=== PATIENT | male | born 1940 | race Caucasian/White ===

== ENCOUNTER 2019-11-01 10:38 | Outpatient (CLI) | payer MEDICARE, SELFPAY ==
[2019-11-01 11:18] LABS: Hematocrit 50.1 % (42.0-52.0); Hemoglobin 16.2 g/dL (14.0-18.0)
[2019-11-01 11:29] LABS: Alanine Aminotransferase 31 U/L (4-50); Aspartate Amino Transferase 28 U/L (17-59)
[2019-11-05 11:24] LABS: Testosterone Free 61.2 pg/mL (6.0-73.0); Testosterone Total 565 ng/dL (250-1100)
[2019-11-06 22:21] LABS: Estradiol, Ultrasensitive 32 pg/mL (< OR = 29)
== END 2019-11-01 10:39 | disposition home or self-care (01) ==
PROVIDERS: Visit Provider Radiology Radiation Oncology
DX: N40.1 Benign prostatic hyperplasia with lower urinary tract symptoms (principal)
CPT/HCPCS: 36415; 82670; 84402; 84403; 84450; 84460; 85014; 85018

== ENCOUNTER 2020-04-24 10:11 | Emergency (ER) | payer MEDICARE, SELFPAY ==
--- NOTE | ~2020-04-24 | XR_ITS ---
EXAMINATION: XR femur LT min 2V INDICATION: Lump/wound to the lateral aspect of the mid femur TECHNIQUE: Two views of the left femur are obtained on four radiographs COMPARISON: None available FINDINGS: Bone alignment is normal. 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 No fracture is identified. Phleboliths are noted in the pelvis. Subtle soft tissue swelling is seen lateral to the m id femur without underlying osseous abnormality. IMPRESSION: 1. No acute osseous abnormality. Reviewed, dictated and finalized at location B.
--- NOTE | ~2020-04-24 | US_ITS ---
EXAMINATION: US soft tissue LE LT DATE: 04/24/2020 12:45 INDICATION: Left thigh mass and pain. TECHNIQUE: Multiple grayscale and Doppler ultrasound images of the left thigh were obtained. COMPARISON: Left femur radiographs 04/24/2020 FINDINGS: There is a 1.8 cm cystic mass with low level echoes in the musculature in distal lateral le ft thigh. IMPRESSION: 1. 1.8 cm cystic mass with low level echoes in the musculature in distal lateral left thigh, likely a hematoma from a grade 2 muscle strain. Reviewed, dictated and finalized at location A. IMPRESSION: 1. 1.8 cm cystic mass with low level echoes in the musculature in distal latera l left thigh, likely a hematoma from a grade 2 muscle strain.
--- NOTE | ~2020-04-24 | XR_ITS ---
EXAMINATION: XR knee LT 3V DATE: 04/24/2020 11:11 INDICATION: Lump/one to the lateral aspect of the femur TECHNIQUE: Three views of the left knee were obtained. COMPARISON: None. FINDINGS: Alignment is normal. No fracture or osteochondral lesion. There is mild tricompartmental os teoarthritis characterized by tiny marginal osteophytes. No joint effusion/synovitis. Soft tissues a re unremarkable. IMPRESSION: 1. No acute osseous abnormality. Reviewed, dictated and finalized at location B.
[2020-04-24 10:20] VITALS: BP 152/49; PULSE 91; RESP 18; TEMP 36.5; O2SAT 100
--- NOTE | 2020-04-24 10:45 | ED.LOWEXIN ---
HPI - Extremity Injury (Lower) General Chief Complaint: Extremity Injury, Lower Stated Complaint: leg wound Time Seen by Provider: 04/24/20 10:38 History of Present Illness HPI Narrative: Pain in his medial left thigh for a few days. Only present with activity. Especially severe with climbing stairs. Also noted firm lump superiormedial to the knee around the time the pain started, but it is not painful. He is a runner. No trauma. Related Data Allergies Allergy/AdvReac Type Severity Reaction Status Date / Time No Known Allergies Allergy Unverified 04/24/20 10:24 Review of Systems Review of Systems: All systems reviewed & are unremarkable except as noted in HPI and below Constitutional: Constitutional: Denies fever(s) Cardiovascular: Cardiovascular: Denies chest pain Respiratory: Respiratory: Denies dyspnea Musculoskeletal: Musculoskeletal: Denies back pain Neurologic: Denies numbness and Denies weakness [facility], [facility] Family History Family History Mother Hypertension Father Family history of malignant neoplasm of brain Social History Social History Smoking status: Never smoker Alcohol intake: current Gender identity (if verbalized by the patient): Male Exam Const: General: healthy appearing, no acute distress and alert Orientation/consciousness: patient oriented x3 HENMT: Head: normal to inspection Resp: Effort & Inspection: normal respiratory effort Auscultation: clear to auscultation bilaterally Cardio: Rate: regular rate Rhythm: regular rhythm Skin: General skin exam: normal color Rashes: no rashes Wounds: no wounds Neuro: General: patient oriented x3 and CN's II-XI intact bilaterally Speech: normal speech Gait exam (Neuro): Normal gait present Extrem: Other: firm mass to left thigh Course Vital Signs Vital signs: Vital Signs Temperature 36.5 C 04/24/20 10:20 Pulse Rate 91 04/24/20 10:20 Respiratory Rate 18 04/24/20 10:20 Blood Pressure 152/49 H 04/24/20 10:20 Pulse Oximetry 100 04/24/20 10:20 Temperature 36.5 C 04/24/20 10:20 Pulse Rate 87 04/24/20 13:43 Respiratory Rate 16 04/24/20 13:43 Blood Pressure 156/50 H 04/24/20 13:43 Pulse Oximetry 100 04/24/20 13:43 Procedures Other Procedure Procedure 1: Other Procedure: Bedside US cystic appearing lesion to left thigh MDM - Extremity Injury (Lower) Medical Records Attestation: I reviewed the patient's medical records. Imaging Data Radiologist's impression: ITS Impressions Femur X-Ray 04/24/20 11:12 IMPRESSION: 1. No acute osseous abnormality. Knee X-Ray 04/24/20 11:14 IMPRESSION: 1. No acute osseous abnormality. Soft Tissue Ultrasound 04/24/20 12:53 IMPRESSION: 1. 1.8 cm cystic mass with low level echoes in the musculature in distal lateral left thigh, likely a hematoma from a grade 2 muscle strain. Discharge Plan Discharge Clinical Impression: Quadriceps strain Qualifiers: Encounter type: initial encounter Laterality: left Qualified Code(s): S76.112A - Strain of left quadriceps muscle, fascia and tendon, initial encounter Patient Disposition: Home, Self-Care Condition: Stable Instructions: Muscle Strain (ED) Follow-up/Referrals: PHYSICIAN NOT ON STAFF,NONSTAFF [Primary Care Provider] - Discharge Date/Time: 04/24/20 13:45
[2020-04-24 12:34] VITALS: BP 150/57; PULSE 90; RESP 18; O2SAT 100
[2020-04-24 13:43] VITALS: BP 156/50; PULSE 87; RESP 16; O2SAT 100
== END 2020-04-24 13:45 | disposition home or self-care (01) ==
PROVIDERS: Emergency Provider Emergency Medicine
DX: S76.112A Strain of left quadriceps muscle, fascia and tendon, initial encounter (principal); X58.XXXA Exposure to other specified factors, initial encounter
CPT/HCPCS: 73552; 73562; 76882; 99284

== ENCOUNTER 2020-11-26 12:00 | Outpatient (CLI) | payer MEDICARE, SELFPAY ==
--- NOTE | 2020-11-26 12:11 | ECG_ITS ---
Measurements Intervals [place] Rate: 86 P: 51 [place]: 161 QRS: -4 QRSD: 147 T: 24 QT: 393 QTc: 470 Interpretive Statements SINUS RHYTHM RIGHT BUNDLE BRANCH BLOCK BASELINE WANDER- V4 ABNORMAL ECG Electronically Signed On 11-26-2020 13:05:39 FINISH FILER by Casey Irwin D.O.
== END 2020-11-26 12:01 | disposition home or self-care (01) ==
LOC: ANHCARD 12:03
PROVIDERS: PCP Internal Medicine; Visit Provider Internal Medicine
DX: I10 Essential (primary) hypertension (principal); I45.10 Unspecified right bundle-branch block
CPT/HCPCS: 93005

== ENCOUNTER 2022-05-07 13:06 | Emergency (ER) | payer MEDICARE, SELFPAY ==
--- NOTE | ~2022-05-07 | XR_ITS ---
EXAMINATION: XR finger 3rd LT min 2V INDICATION: Left third finger pain and laceration TECHNIQUE: Four views of the left third finger are obtained. COMPARISON: None available FINDINGS: There is a laceration lateral tuft of the left third finger. No underlying osseous abnormal ity is identified. No radiopaque foreign body is seen. 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 IMPRESSION: 1. Soft tissue laceration of the third finger without underlying osseous abnormality or radiopaque fo reign body. Reviewed, dictated and finalized at location A. IMPRESSION: 1. Soft tissue laceration of the third finger without underlying osseous abnorm ality or radiopaque foreign body.
[2022-05-07 13:16] VITALS: BP 117/53; PULSE 67; RESP 18; TEMP 36.5; O2SAT 100
--- NOTE | 2022-05-07 13:31 | ED.WOUNDLAC ---
HPI - Wound/Laceration General Chief Complaint: Wound/Laceration Stated Complaint: finger laceration Time Seen by Provider: 05/07/22 13:20 History of Present Illness HPI narrative: Patient is a 81 year old [id number] male here for evaluation of a laceration sustained to his left third fingertip [address] sustained accidentally from a shrub cele. He was out in the yard trimming his bushes when his finger accidentally got sliced in between the shrub cele. He is not on blood thinners. Notes his last tetanus shot was 3 months ago. Has FROM in finger without weakness. Denies other injury sustained in the accident. Related Data Allergies Allergy/AdvReac Type Severity Reaction Status Date / Time No Known Allergies Allergy Verified 02/28/22 10:49 Review of Systems Review of Systems: Gen: Denies fevers or chills Eyes: Denies eye pain or visual change ENT: Denies congestion Respiratory: Denies shortness of breath or cough CV: Denies chest pain or palpitations GI: Denies abdominal pain nausea, emesis or diarrhea : denies burning, urgency, frequency or hematuria Musculoskeletal: Denies back pain or muscle pain Neuro: Denies numbness, tingling, weakness or focal weakness Skin: Reports laceration to fingertip Except as documented, all other systems reviewed and negative [facility] Past Medical History Medical History High blood pressure Vision loss Surgical History Surgical History History of eye surgery Family History Family History Mother Hypertension Cerebrovascular accident Father Family history of malignant neoplasm of brain Liver cancer Social History Social History Smoking status: Never smoker Alcohol intake: current Gender identity (if verbalized by the patient): Male Exam Narrative: Gen: Alert, oriented, no acute distress Eyes: EOMI, no icterus Pulm: Respirations even and unlabored, symmetric thorax expansion, no audible stridor or visible cyanosis CV: Regular rate per telemetry GI: No distension, no voluntary/involuntary guarding Neuro: AOx4, moves all extremities without apparent difficulty or weakness, follows commands MSK: Full range of motion to fingers. Good strength with flexion and extension of fingers. Sensation intact to distal finger. Skin: Patient has a 1.5 centimeter, irregular laceration to the distal aspect of his left third digit. Psych: Normal mood/affect, insight/judgement good, adequate fund of knowledge, recent/remote memory intact Course Vital Signs Vital signs: Vital Signs Temperature 97.7 F 05/07/22 13:16 Pulse Rate 67 05/07/22 13:16 Respiratory Rate 18 05/07/22 13:16 Blood Pressure 117/53 L 05/07/22 13:16 Pulse Oximetry 100 05/07/22 13:16 Oxygen Delivery Room Air 05/07/22 13:16 Temperature 97.7 F 05/07/22 13:16 Pulse Rate 76 05/07/22 14:59 Respiratory Rate 18 05/07/22 14:59 Blood Pressure 122/68 05/07/22 14:59 Pulse Oximetry 99 05/07/22 14:59 Oxygen Delivery Room Air 05/07/22 13:16 Procedures Laceration Laceration 1: Date: 05/07/22 Time: 14:37 Site: other (left third digit) Size (cm): 2 Description: linear Depth: simple, single layer Local Anesthetic: lidocaine 1% Amount of anesthesia used (mL): 3 Pre-repair: wound explored, irrigated and irrigated extensively ====== Skin Level ====== Skin layer closed with: other (ethilon) Size (cm): 5-0 Number of sutures: 4 Technique: simple, interrupted ====== Subcutaneous Layer ====== ====== Muscle Layer ====== ====== Tendon Layer ====== MDM - Wound/Laceration MDM Narrative Medical decision making narrative: 56-
[2022-05-07 14:59] VITALS: BP 122/68; PULSE 76; RESP 18; O2SAT 99
== END 2022-05-07 15:00 | disposition home or self-care (01) ==
PROVIDERS: Emergency Provider Emergency Medicine; PCP Internal Medicine
DX: S61.213A Laceration without foreign body of left middle finger without damage to nail, initial encounter (principal); I10 Essential (primary) hypertension; W29.3XXA Contact with powered garden and outdoor hand tools and machinery, initial encounter; Y93.H2 Activity, gardening and landscaping
CPT/HCPCS: 12001; 73140; 99283

== ENCOUNTER 2023-03-15 11:03 | Outpatient (CLI) | payer MEDICARE, SELFPAY ==
--- NOTE | ~2023-03-15 | XR_ITS ---
EXAMINATION: XR abdomen/kub 1V DATE: 03/15/2023 11:40 INDICATION: Flank pain TECHNIQUE: A supine view of the abdomen was obtained. COMPARISON: CT dated 03/29/2019 FINDINGS: Moderate amount of gas scattered throughout multiple loops of nondilated large and small bowel. Uncha nged pattern of multiple phleboliths in the pelvis as well as or tubular appearing calcification keisha g the bilateral vas deferens which can be seen with diabetes. There are multiple new surgical clips i n the inferior central pelvis which may relate to prior prostatectomy. No definitive renal or uretera l stones identified. Mild to moderate bilateral hip osteoarthritis with prominent hypertrophic change along the superolateral rims of the acetabula. IMPRESSION: 1. No evident urolithiasis. Reviewed, dictated and finalized at location A. IMPRESSION: 1. No evident urolithiasis.
--- NOTE | ~2023-03-15 | CT_ITS ---
EXAMINATION: CT abdomen pelvis wo/w con DATE: 03/15/2023 12:11 INDICATION: TECHNIQUE: Computed tomography (CT) of the abdomen and pelvis was performed without and with 130 cc O mnipaque 350 intravenous contrast. The dose-length product was 1129.89 mGy-cm. Automated exposure con trol and iterative reconstruction technique were employed. COMPARISON: CT dated 04/16/2019. FINDINGS: Lung bases unremarkable. Heart size normal. No significant pleural or pericardial effusion. There are multiple simple and complicated cysts of the kidneys. The liver, spleen, pancreas, adrenal glands are unremarkable. Gallbladder is present. Nonobstructive bowel gas pattern. Colonic diverticulosis without evidence for diverticulitis. Enlarged prostate glan d. Mild lumbar spondylosis. No definite renal/ureteral stones. Bladder is grossly unremarkable. No hy dronephrosis. No acute osseous abnormality. IMPRESSION: 1. No findings to account for patient's symptoms. 2: Multiple bilateral simple and complicated cyst of the kidneys. 3: Enlarged prostate gland. Reviewed, dictated and finalized at location []
[2023-03-15 11:52] LABS: Estimated Glomerular Filt Rate 58
== END 2023-03-15 11:04 | disposition home or self-care (01) ==
PROVIDERS: PCP Internal Medicine; Visit Provider Urology
DX: R10.9 Unspecified abdominal pain (principal); N40.0 Benign prostatic hyperplasia without lower urinary tract symptoms; N28.1 Cyst of kidney, acquired
CPT/HCPCS: 74018; 74178; Q9967

== ENCOUNTER 2023-08-03 12:49 | Outpatient (CLI) | payer MEDICARE, SELFPAY ==
--- NOTE | 2023-08-03 13:12 | ECHO_ITS ---
Patient Info Name: Roshan Adamson Age: 83 years : 1940 Gender: Male Ht: 62 in Wt: 162 lbs BSA: 1.82 m2 HR: 59 bpm BP: 136 / 57 mmHg Technical Quality: Fair Exam Date: 08/03/2023 1:16 PM Exam Location: Echo Lab Patient Status: Outpatient Admit Date: 08/03/2023 Staff Ordering Physician: Alec Britt MD Lease Administration Supervisor: Laura Peterson RDCS Attending Provider: Alec Britt MD Referring Physician: Balwinder CARTER; Exam Type: CA echo doppler color flow Study Info Indications - encounter for screening for malignant neoplasm Complete two-dimensional, color flow and Doppler transthoracic echocardiogram is performed. Summary 1. Complete two-dimensional, color flow and Doppler transthoracic echocardiogram is performed. 2. Left ventricular chamber dimension is normal. 3. Left ventricular systolic function is normal, estimated at 65-70%. 4. The left ventricular diastolic function is grade II diastolic dysfunction. 5. E/e' 17 is elevated. 6. Global longitudinal strain is normal at -22.5%. 7. Left atrial chamber dimension is moderately enlarged. 8. There is moderate aortic valve sclerosis. 9. There is moderate aortic valve regurgitation. 10. There is mild mitral valve regurgitation. 11. There is trace tricuspid valve regurgitation. 12. Moderate pulmonary hypertension, estimated pulmonary arterial systolic pressure is 52 mmHg. Left Ventricle E/e' 17 is elevated. Global longitudinal strain is normal at -22.5%. Left ventricular chamber dimension is normal. Left ventricular systolic function is normal, estimated at 65-70%. The left ventricular diastolic function is grade II diastolic dysfunction. Right Ventricle Right ventricular systolic function is normal and with normal TAPSE 2.1 cm. Right ventricular chamber dimension is normal. Left Atria Left atrial chamber dimension is moderately enlarged. Right Atria Right atrial chamber dimension is normal. Aortic Valve The aortic valve is trileaflet. There is moderate aortic valve sclerosis. There is no aortic valve stenosis. There is moderate aortic valve regurgitation. Pulmonic Valve There is no pulmonic regurgitation. Mitral Valve There is no mitral valve stenosis. There is mild mitral valve regurgitation. Tricuspid Valve There is trace tricuspid valve regurgitation. Moderate pulmonary hypertension, estimated pulmonary arterial systolic pressure is 52 mmHg. Pericardium/Pleural There is no pericardial effusion. Inferior Vena Cava Normal inferior vena cava with >50% collapse upon inspiration consistent with normal right atrial pressure, 5 mmHg. Aorta The aortic root size at the sinus of Valsalva is normal. Left Ventricular Outflow Tract Name Value Normal LVOT 2D LVOT Diameter 2.0 cm LVOT Doppler LVOT Peak Gradient 7 mmHg LVOT Mean Gradient 5 mmHg LVOT VTI 35 cm LVOT VTI/AV VTI Ratio 0.8 LVOT Stroke Volume 112 ml LVOT CO 20.2 l/min LVOT CI 11.1 l/min/m2 Pulmonic Valve
== END 2023-08-03 12:50 | disposition home or self-care (01) ==
PROVIDERS: PCP Family Medicine; Visit Provider Family Medicine
DX: Z12.11 Encounter for screening for malignant neoplasm of colon (principal); I08.3 Combined rheumatic disorders of mitral, aortic and tricuspid valves
CPT/HCPCS: 93306

== ENCOUNTER 2023-11-28 08:48 | Outpatient (CLI) | payer MEDICARE, SELFPAY ==
--- NOTE | ~2023-11-28 | XR_ITS ---
EXAMINATION: XR_ENEMABAC_CR DATE: 11/28/2023 10:18 INDICATION: Incomplete colonoscopy TECHNIQUE: A major gifts manager radiograph was obtained. A catheter was inserted into the patient's rectum. Contra st was infused by gravity. Gas was infused by hand pump. Fluoroscopic spot images and conventional ra diographs were obtained. Fluoroscopy exposure time was 2.4 minutes. A total of 67 fluoroscopic images and 13 overhead radiographs were obtained. COMPARISON: None. FINDINGS: Again seen is extensive diverticulosis throughout the colon most prominent along the descending and s igmoid colon. The sigmoid and transverse colon are redundant. Contrast surrounds a 12 mm intraluminal polypoid filling defect along the right anterior wall of the rectum. Contrast outlines an additional 1.5 cm lesion in the cecum along the second haustral fold proximal to the ileocecal valve which proj ects over the lumen on all of the provided projections favoring an additional intraluminal polypoid n odule rather than an extraluminal diverticulum. No strictures. IMPRESSION: 1. A couple polypoid filling defects measuring 1.2 cm at the rectum and 1.5 cm at the cecum. 2. Extensive diverticulosis throughout the colon Reviewed, dictated and finalized at location A. GING EDITOR
== END 2023-11-28 08:49 | disposition home or self-care (01) ==
PROVIDERS: PCP Family Medicine; Visit Provider Internal Medicine Gastroenterology
DX: Z53.09 Procedure and treatment not carried out because of other contraindication (principal); K57.30 Diverticulosis of large intestine without perforation or abscess without bleeding
CPT/HCPCS: 74280

== ENCOUNTER 2024-07-11 21:18 | Emergency (ER) | payer MEDICARE, SELFPAY ==
--- NOTE | ~2024-07-11 | XR_ITS ---
EXAMINATION: XR chest 2V DATE: 07/11/2024 22:39 INDICATION: Fall. TECHNIQUE: Frontal and lateral views of the chest were obtained on 3 radiographs. COMPARISON: CT abdomen and pelvis 03/15/2023 FINDINGS: There is no pneumonia, pleural effusion, or pneumothorax. The heart size is normal. IMPRESSION: 1. No acute cardiopulmonary disease. Reviewed, dictated and finalized at location A.
--- NOTE | ~2024-07-11 | XR_ITS ---
EXAMINATION: XR foot RT min 3V DATE: 07/11/2024 22:39 INDICATION: Right foot injury. TECHNIQUE: 3 views of right foot were obtained. COMPARISON: None. FINDINGS: Alignment is normal. No fracture. There is mild osteoarthritis of first metatarsophalangeal joint and some of the midfoot joints and interphalangeal joints. There are enthesophytes at the post erior and plantar aspects of calcaneal tuberosity. There is soft tissue swelling posterior to calcane al tuberosity. IMPRESSION: 1. Mild polyarticular osteoarthritis. 2. Javi deformity. Reviewed, dictated and finalized at location A.
--- NOTE | ~2024-07-11 | CT_ITS ---
EXAMINATION: CT brain wo con DATE: 07/11/2024 22:45 INDICATION: Head injury. TECHNIQUE: Computed tomography (CT) of the head was performed without intravenous contrast. The mA wa s adjusted according to patient size. Iterative reconstruction technique was employed. The dose-lengt h product was 681.00 mGy-cm. COMPARISON: None FINDINGS: There is no intracranial hemorrhage, acute infarction, or abnormal intracranial mass lesion . The ventricles are normal in size. The orbits are normal. There is mild mucosal thickening in the p aranasal sinuses. The mastoid air cells are normal. IMPRESSION: 1. Normal brain. Reviewed, dictated and finalized at location A. IMPRESSION: 1. Normal brain.
[2024-07-11 21:24] VITALS: BP 136/59; PULSE 76; RESP 13; O2SAT 100
[2024-07-11 21:32] VITALS: BP 150/51; PULSE 80; RESP 14; O2SAT 98
[2024-07-11 22:00] VITALS: PULSE 78; RESP 15; O2SAT 97
[2024-07-11 22:02] VITALS: BP 133/48; PULSE 72; RESP 16; O2SAT 95
[2024-07-11 22:15] VITALS: PULSE 74; RESP 16; O2SAT 96
[2024-07-11 23:07] LABS: Basophils Percent Auto 0.7 % (0.2-1.2); Eosinophils Absolute Auto 0.2 K/mm3 (0-0.3); Eosinophils Percent Auto 3.2 % (0-4.4); Hematocrit 32.5 % (42.0-52.0); Hemoglobin 10.9 g/dL (14.0-18.0); Immature Granulocyte Absolute 0.02 K/mm3 (0.00-0.031); Immature Granulocyte Percent A 0.3 % (0-0.5); Lymphocytes Absolute Auto 1.52 K/mm3 (0.9-3.2); Lymphocytes Percent Auto 25.3 % (18.3-44.2); Mean Corpuscular HGB Conc 33.5 g/dl (32-36); Mean Corpuscular Hemoglobin 31.2 pg (26-34); Mean Corpuscular Volume 93.1 fl (80-100); Mean Platelet Volume 9.5 fl (7.4-10.4); Monocytes Absolute Auto 0.6 K/mm3 (0.1-0.6); Monocytes Percent Auto 10.7 % (2.6-8.5); Neutrophils Absolute Auto 3.6 K/mm3 (1.3-6.7); Neutrophils Percent Auto 59.8 % (45.5-73.1); Platelet Count Result 175 k/mm3 (150-375); Red Blood Count 3.49 M/mm3 (4.6-6.20); Red Cell Distribution Width 13.8 % (11.5-14.5)
[2024-07-11 23:16] LABS: INR 1.1; Prothrombin Time 14.1 Seconds (11.1-14.7)
[2024-07-11 23:17] LABS: Alanine Aminotransferase 39 U/L (6-50); Albumin Level 3.3 g/dL (3.5-5.1); Alkaline Phosphatase 99 U/L (38-126); Anion Gap 5 mmol/L (4-12); Aspartate Amino Transferase 36 U/L (17-59); Bilirubin,Total 0.3 mg/dL (0.2-1.3); Blood Urea Nitrogen 23 mg/dL (9-20); Carbon Dioxide 26 mmol/L (22-30); Chloride 110 mmol/L (98-107); Estimated CRCL calculation 48 ml/min; Estimated Glomerular Filt Rate > 60; Glucose 106 mg/dL (65-110); Partial Thromboplastin Time 27.1 Seconds (22.3-36.8); Potassium 4.2 mmol/L (3.4-5.0); Sodium 141 mmol/L (137-145)
--- NOTE | 2024-07-11 23:37 | ED.GENADULT ---
HPI - General Adult General Chief complaint: Fall Stated complaint: FALL Time Seen by Provider: 07/11/24 22:15 History of Present Illness HPI narrative: Patient is an 84-year-old male who presents ER after having a fall at home. Patient reports his arm was stuck between his recliner in a pillow it when he got up he fell forward striking his head on the ground. No LOC. he has some bruising to the right foot that he says has been there for couple of days. Patient is oriented x4 but does have a prescription for donepezil. Lives at home by himself. He takes Plavix. No other reports of injury. Related Data Home Medications Medication Instructions Recorded Confirmed ferrous sulfate 325 mg (65 mg 325 mg PO DAILY 06/27/23 03/29/24 iron) tablet (Feosol) Allergies Allergy/AdvReac Type Severity Reaction Status Date / Time No Known Allergies Allergy Verified 07/11/24 21:31 Review of Systems Review of Systems: All systems reviewed & are unremarkable except as noted in HPI and below Constitutional: Constitutional: Reports no additional constitutional complaints ENT: Reports system reviewed and no additional complaints, except as documented Cardiovascular: Cardiovascular: Reports no additional cardiovascular complaints Respiratory: Respiratory: Reports no additional respiratory complaints Gastrointestinal: Gastrointestinal: Reports no additional gastrointestinal complaints Musculoskeletal: Musculoskeletal: Reports no additional musculoskeletal complaints [facility] Past Medical History Medical History (Updated 07/12/24 @ 00:53 by Leo Joshi MD) Essential (primary) hypertension High blood pressure Hyperlipidemia Memory changes Moderate pulmonary hypertension RLS (restless legs syndrome) Vision loss Surgical History Surgical History History of eye surgery Family History Family History Mother Hypertension Cerebrovascular accident Father Family history of malignant neoplasm of brain Liver cancer Social History Social History Smoking status: Never smoker Alcohol intake: current Gender identity (if verbalized by the patient): Male Exam Narrative: GENERAL: Well-appearing, well-nourished, and in no acute distress. HEAD: Normocephalic, Abrasion of the forehead.. EYES: PERRL and EOMI. ENT: Mucous membranes moist. NECK: Supple. CHEST: Clear to auscultation. No respiratory distress. HEART: Regular rate and rhythm. Normal peripheral pulses. ABDOMEN: Soft, nontender, nondistended. EXTREMITIES: Normal range of motion. No edema. SKIN: Warm, dry, no rash. Bruising at the MTPs of toes 2 and 3 on the right. NEURO: Alert and oriented x3. PSYCH: Normal mood and affect. Course Course Emergency Course: Patient resting comfortably. Appropriately alert and oriented. Ambulates without difficulty. Unremarkable w/u. Vital Signs Vital signs: Vital Signs Pulse Rate 76 07/11/24 21:24 Respiratory Rate 13 07/11/24 21:24 Blood Pressure 136/59 L 07/11/24 21:24 Pulse Oximetry 100 07/11/24 21:24 Pulse Rate 86 07/12/24 00:20 Respiratory Rate 18 07/12/24 00:20 Blood Pressure 124/98 H 07/12/24 00:20 Pulse Oximetry 99 07/12/24 00:20 Medical Decision Making Vital Signs Vital Signs: Vital Signs Pulse Rate 76 07/11/24 21:24 Respiratory Rate 13 07/11/24 21:24 Blood Pressure 136/59 L 07/11/24 21:24 Pulse Oximetry 100 07/11/24 21:24 Pulse Rate 86 07/12/24 00:20 Respiratory Rate 18 07/12/24 00:20 Blood Pressure 124/98 H 07/12/24 00:20 Pulse Oximetry 99 07/12/24 00:20 Lab Data 07/11/24 23:00 07/11/24 23:00 Labs: Lab Results 07/11/24 Range/Units 23:00 WBC 6.0 (4.5-10.0) K/mm3 RBC 3.49 L (4.
[2024-07-12 00:20] VITALS: BP 124/98; PULSE 86; RESP 18; O2SAT 99
[2024-07-12 00:35] LABS: Add Urine Microscopic? YES; Appearance Urine Clear (Clear); Bacteria Urine None Seen /hpf; Bilirubin Urine Negative (Negative); Blood Urine Negative (Negative); Color Urine Yellow (Yellow); Glucose Urine UA Negative (Negative); Ketones Urine Trace mg/dL (Negative); Leukocyte Esterase Ur Negative LEU/UL (Negative); Nitrate Urine Negative (Negative); Protein Urine Trace mg/dL (Negative); RBC Urine 0-2 /hpf (0-2); Specific Grav Ur 1.026 (1.001-1.035); Squamous Epithelial Cell Urine None Seen /hpf (Few); Urobilinogen Urine 0.2 mg/dL (<2.0); WBC Urine 0-5 /hpf (0-3)
== END 2024-07-12 00:56 | disposition home or self-care (01) ==
PROVIDERS: Emergency Provider Emergency Medicine; PCP Family Medicine
DX: S00.81XA Abrasion of other part of head, initial encounter (principal); S90.31XA Contusion of right foot, initial encounter; I10 Essential (primary) hypertension; E78.5 Hyperlipidemia, unspecified; G25.81 Restless legs syndrome; M19.071 Primary osteoarthritis, right ankle and foot; Z79.02 Long term (current) use of antithrombotics/antiplatelets; Z79.899 Other long term (current) drug therapy; W18.39XA Other fall on same level, initial encounter; X58.XXXA Exposure to other specified factors, initial encounter
CPT/HCPCS: 36415; 70450; 71046; 73630; 80053; 81001; 85025; 85610; 85730; 99284

== ENCOUNTER 2024-10-17 01:01 | Day surgery (SDC) | payer MEDICARE, SELFPAY ==
[2024-10-08 16:12] VITALS: BMI 28.3
--- NOTE | 2024-10-09 09:21 | PC.NURSE ---
Spoke with _patient _ regarding medication _Plavix. Patient verbalizes understanding that the last dose is to be taken on _10/09/24_ and the Endoscopist will instruct them when to restart after the procedure.
--- NOTE | 2024-10-16 15:33 | WPDANESEPPF ---
Anes - Initial Pre Proc Eval Procedure: Operation Date: 10/17/24 14:00 Proposed Procedures p Flexible Sigmoidoscopy - Jerry Correia MD Date/Time: 10/16/24 15:33 Surgeon: Jerry Correia MD Pre Op Diagnosis: Screening malignant neoplasm of colon. Patient Data Age: 84 Gender: M Height: 1.63 m Weight: 74.8 kg Allergies Allergy/AdvReac Type Severity Reaction Status Date / Time No Known Allergies Allergy Verified 10/17/24 11:55 Home Medications ?Medication ?Instructions ?Recorded ?Confirmed ?Type epinephrine 0.3 mg/0.3 mL 0.3 mg (0.3 mL) IM ONCE #2 ea 03/29/23 10/11/24 Rx injection, auto-injector (EpiPen) pitavastatin calcium 2 mg tablet 4 mg (2 x 2 mg) PO DAILY #200 tabs 05/11/23 10/17/24 Rx ferrous sulfate 325 mg (65 mg 325 mg PO DAILY 06/27/23 10/17/24 History iron) tablet (Feosol) finasteride 5 mg tablet 5 mg PO DAILY #90 tabs 09/26/23 10/17/24 Rx fexofenadine 180 mg tablet 180 mg PO DAILY #90 tabs 10/31/23 10/17/24 Rx (Zaria Hives) potassium chloride 20 mEq 20 meq PO .COMPLEX 90 days #270 10/31/23 10/17/24 Rx tablet,extended release tabs fluticasone propionate 50 2 spray intranasal DAILY #16 grams 12/12/23 10/17/24 Rx mcg/actuation nasal spray,suspension (Flonase Allergy Relief) clopidogrel 75 mg tablet See Rx Instructions .Route 01/11/24 10/17/24 Rx .COMPLEX #90 tabs alfuzosin 10 mg tablet,extended 10 mg PO DAILY #90 tabs 02/15/24 10/17/24 Rx release 24 hr amlodipine 5 mg-benazepril 10 mg See Rx Instructions .Route 02/15/24 10/17/24 Rx capsule .COMPLEX #180 caps donepezil 5 mg tablet See Rx Instructions .Route 02/15/24 10/17/24 Rx .COMPLEX #540 tabs ropinirole 1 mg tablet See Rx Instructions .Route 02/15/24 10/17/24 Rx .COMPLEX #90 tabs metoprolol succinate 25 mg 25 mg PO DAILY #30 tabs 03/29/24 10/17/24 Rx tablet,extended release 24 hr diazepam 10 mg tablet 10 mg PO BID PRN sleep #135 tabs 07/29/24 10/11/24 Rx Patient hx anesthesia problems: none Family hx anesthesia problems: none Results Review: All pre-operative results and documents have been reviewed as part of the pre-operative evaluation. [facility] Past Medical History Medical History (Updated 10/16/24 @ 15:33 by Sergio Haynes DO) Aortic regurgitation CAD (coronary artery disease) Dementia Moderate pulmonary hypertension RLS (restless legs syndrome) Memory changes Hyperlipidemia Essential (primary) hypertension High blood pressure Vision loss Surgical History Surgical History History of eye surgery Family History Family History Mother Hypertension Cerebrovascular accident Father Family history of malignant neoplasm of brain Liver cancer Social History Social History Smoking status: Never smoker Alcohol intake: current Substance use: never Living arrangements: alone Gender identity (if verbalized by the patient): Male Spiritual care concerns: No Anes - Eval Final PreProcedure Day of Procedure 10/16/24 15:33 Patient weight: overweight Heart: regular rate and rhythm Lungs: clear to auscultation Airway: Mallampati scale class II Neurological: alert and oriented Last oral intake: >/= 8 hours ASA classification: III Emergent: no Anesthetic plan: proceed Anesthesia type and monitoring: general GIVS and standard monitoring Results Review: All pre-operative results and documents have been reviewed as part of the pre-operative evaluation. Informed Consent: The patient's anesthetic plan and its attendant risks and benefits were discussed with the patient/family/POA. Questions were solicited and answers provided to the satisfaction of the patient/family/POA.
[2024-10-17 11:58] VITALS: BP 145/45; PULSE 74; RESP 18; TEMP 36.1; O2SAT 97; BMI 27.3
[2024-10-17] MEDS: LACTATED RINGERS 1,000 ML 150 ML IV CONT (12:10)
--- NOTE | 2024-10-17 13:39 | PM.IMHP ---
H&P: HPI History of Present Illness Date/Time: 10/17/24 13:39 Chief Complaint: Chronic diarrhea. Narrative: The patient reports a 4 year history of diarrhea, which has been extensively worked up by his primary care physician. In February 2024 he had a colonoscopy and biopsies were any specific but were described as quiescent inflammatory bowel disease, with the presence of inflammatory infiltrate but no collagen band in the submucosa. He is referred for sigmoidoscopy, apparently to evaluate the presence of a rectal ulcer there was evidenced during his last colonoscopy Review of Systems Review of Systems: All systems reviewed & are unremarkable except as noted in HPI and below PMFSH Past Medical History Medical History (Updated 10/16/24 @ 15:33 by Sergio Haynes DO) Aortic regurgitation CAD (coronary artery disease) Dementia Moderate pulmonary hypertension RLS (restless legs syndrome) Memory changes Hyperlipidemia Essential (primary) hypertension High blood pressure Vision loss Surgical History Surgical History History of eye surgery Family History Family History Mother Hypertension Cerebrovascular accident Father Family history of malignant neoplasm of brain Liver cancer Social History Social History Smoking status: Never smoker Alcohol intake: current Substance use: never Living arrangements: alone Gender identity (if verbalized by the patient): Male Spiritual care concerns: No Meds Home Medications and Allergies Home Medications ?Medication ?Instructions ?Recorded ?Confirmed ?Type epinephrine 0.3 mg/0.3 mL 0.3 mg (0.3 mL) IM ONCE #2 ea 03/29/23 10/11/24 Rx injection, auto-injector (EpiPen) pitavastatin calcium 2 mg tablet 4 mg (2 x 2 mg) PO DAILY #200 tabs 05/11/23 10/17/24 Rx ferrous sulfate 325 mg (65 mg 325 mg PO DAILY 06/27/23 10/17/24 History iron) tablet (Feosol) finasteride 5 mg tablet 5 mg PO DAILY #90 tabs 09/26/23 10/17/24 Rx fexofenadine 180 mg tablet 180 mg PO DAILY #90 tabs 10/31/23 10/17/24 Rx (Zaria Hives) potassium chloride 20 mEq 20 meq PO .COMPLEX 90 days #270 10/31/23 10/17/24 Rx tablet,extended release tabs fluticasone propionate 50 2 spray intranasal DAILY #16 grams 12/12/23 10/17/24 Rx mcg/actuation nasal spray,suspension (Flonase Allergy Relief) clopidogrel 75 mg tablet See Rx Instructions .Route 01/11/24 10/17/24 Rx .COMPLEX #90 tabs alfuzosin 10 mg tablet,extended 10 mg PO DAILY #90 tabs 02/15/24 10/17/24 Rx release 24 hr amlodipine 5 mg-benazepril 10 mg See Rx Instructions .Route 02/15/24 10/17/24 Rx capsule .COMPLEX #180 caps donepezil 5 mg tablet See Rx Instructions .Route 02/15/24 10/17/24 Rx .COMPLEX #540 tabs ropinirole 1 mg tablet See Rx Instructions .Route 02/15/24 10/17/24 Rx .COMPLEX #90 tabs metoprolol succinate 25 mg 25 mg PO DAILY #30 tabs 03/29/24 10/17/24 Rx tablet,extended release 24 hr diazepam 10 mg tablet 10 mg PO BID PRN sleep #135 tabs 07/29/24 10/11/24 Rx Allergies Allergy/AdvReac Type Severity Reaction Status Date / Time No Known Allergies Allergy Verified 10/17/24 11:55 Vital Signs Vital Signs - 24 hr 10/17/24 11:58 Temperature 97 F L Pulse Rate 74 Respiratory Rate 18 Blood Pressure 145/45 H Pulse Oximetry 97 Oxygen Delivery Room Air Exam Const: General: cooperative and healthy appearing Resp: Effort & Inspection: normal respiratory effort and able to speak in complete sentences Auscultation: clear to auscultation bilaterally Cardio: Rate: regular rate Rhythm: regular rhythm GI: Inspection: normal to inspection GI Palp: No No hepatosplenomegaly present Auscultation: normal bowel sounds Rectal Exam: deferred Skin: General skin exam: normal color Psych: Appearance: grossly normal Mental Status: mental status grossly normal Assessment and Plan Assessment and plan (1) Diarrhea: Code(s): R19.7 - Diarrhea, unspecified Status: Acute Assessment and Plan: The patient is deemed a good candidate for the procedure. Consent signed. Will proceed. will take new colonic biopsies. 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 Will await results and advise accordingly.
[2024-10-17 14:05] VITALS: BP 143/66; PULSE 72; RESP 20; O2SAT 96
[2024-10-17 14:15] VITALS: BP 137/68; PULSE 75; RESP 23; O2SAT 96
[2024-10-17 14:25] VITALS: BP 146/63; PULSE 71; RESP 20; O2SAT 99
--- NOTE | 2024-10-17 14:44 | SUR.PHASEII ---
Kalina from [facility] notified for pear picker [id number]
--- NOTE | 2024-10-17 15:22 | SUR.PHASEII ---
Waited for [employer] ride to diamond picker Pt.
== END 2024-10-17 15:21 | disposition home or self-care (01) ==
PROVIDERS: PCP Family Medicine; Visit Provider Internal Medicine Gastroenterology
PROC: 0DJD8ZZ Inspection of Lower Intestinal Tract, Via Natural or Artificial Opening Endoscopic (ICD-10-PCS; CPT 45330; principal; 2024-10-17 14:00)
DX: R19.7 Diarrhea, unspecified (principal); K57.30 Diverticulosis of large intestine without perforation or abscess without bleeding
CPT/HCPCS: 45331; 88305; J2003; J2704; J7120

== ENCOUNTER 2024-11-13 09:43 | Outpatient (CLI) | payer MEDICARE, SELFPAY ==
--- OUTSIDE RECORDS SUMMARY | 2024-11-13 09:49 | XMS_ITS | Continuity of Care Document ---
Author Organization [facility] [employer] [facility] Address [address] [place] [address] Phone Care Team Providers Care Pearl Fisherman Name Role Phone Valentin Yadav MD Unavailable Unavailable Allergies, Adverse Reactions, Alerts Substance Reaction Status Criticality No Known Allergies Active No Inform ation Medications Medication Instructions Dosage Effective Dates (start - stop) Status Comments Lumigan 0.01 % eye drops 2gtts QHS OU - Active fill largest bottle allowed by plan Crestor 5 mg tablet take 2 tablet by oral route every day 10 MG - Active amlodipine 5 mg tablet take 1 tablet by oral route every day 5 MG - Active Plavix 75 mg tablet take 1 tablet by oral route every day 75 MG - Active MULTIVITAMIN (unknown strength) Not Available - Active B Complex 1 tablet - Active B-12 (unknown strength) Not Available - Active aspirin BUCCAL ADH. PATCH - Active POTASSIUM GLUCONATE (unknown strength) Not Available - Active NEXIUM (unknown strength) take 1 capsule by oral route every day Not Available - Active Procedures Procedure Date GDX Retina OFFICE/OUTPATIENT VISIT, EST OFFICE/OUTPATIENT VISIT, EST VISUAL FIELD- EXTENDED OFFICE/OUTPATIENT VISIT, EST GDX Optic Nerve OFFICE/OUTPATIENT VISIT, EST VISUAL FIELD- EXTENDED OFFICE/OUTPATIENT VISIT, EST GDX Optic Nerve OPSCPY EXTND ON/MAC DRAW OFFICE/OUTPATIENT VISIT, EST VISUAL FIELD- EXTENDED OFFICE/OUTPATIENT VISIT, EST GDX Optic Nerve OPSCPY EXTND ON/MAC DRAW Pt Not Seen Enc Created In Error 2020 OFFICE/OUTPATIENT VISIT, EST POSTOP FOLLOW-UP VISIT GDX Retina POSTOP FOLLOW-UP VISIT VIT FOR MACULAR PUCKER OFFICE/OUTPATIENT VISIT, EST GDX Retina OFFICE/OUTPATIENT VISIT, EST VISUAL FIELD- EXTENDED OPSCPY EXTND ON/MAC DRAW OFFICE/OUTPATIENT VISIT, EST OPSCPY EXTND ON/MAC DRAW GDX Optic Nerve REFRACTION MCR OFFICE/OUTPATIENT VISIT, EST VISUAL FIELD EXAMINATION(S) OFFICE/OUTPATIENT VISIT, EST GDX Optic Nerve SPECIAL EYE EXAM, SUBSEQUENT RIGHT EYE A pr SPECIAL EYE EXAM, SUBSEQUENT LEFT EYE Ap r OFFICE/OUTPATIENT VISIT, EST VISUAL FIELD EXAMINATION(S) OFFICE/OUTPATIENT VISIT, EST GDX Optic Nerve SPECIAL EYE EXAM, SUBSEQUENT RIGHT EYE M ay SPECIAL EYE EXAM, SUBSEQUENT LEFT EYE Ma y OFFICE/OUTPATIENT VISIT, EST VISUAL FIELD EXAMINATION(S) MICROFLUID SALIMA TEARS MCR ONLY MICROFLUID SALIMA TEARS MCR ONLY EYE EXAM, NEW PATIENT GDX Optic Nerve MICROFLUID SALIMA TEARS MCR ONLY MICROFLUID SALIMA TEARS MCR ONLY Advance Directives Directive Yes / No Effective Date File Name No Information Encounters Encounter Description Practice Location Reason(s) For Visit Diagnoses Date Provider Providers Copied on Encounter [facility], [address] [address], [place], [place], [id number], [place] tel:[phone] [facility] No Information 4 Vicenta Hanson. [address] [place] [address], [address] [place] [address], [address], [place]. tel:[phone] Referring Provider: Robert Sims, [address] [facility], [address] [facility], [place], [address]. tel:[phone] OFFICE/OUTPA TIENT VISIT, EST [facility], [address] [place] [address], [id number], tel:[phone] [facility]PH [facility] POAG (chief complaint)cat aract (chief complaint) Primary open-angle glaucoma, bilateral, mild stageAge-rel ated nuclear cataract, bilateralPuc kering of macula, left eye 4 Stanislav Pacheco. [address] [facility] [address], [address], [place], [place], [id number], [place]. tel:[phone] Referring Provider: Robert Sims, [address] [facility], [address] [facility], [place], [address]. tel:[phone] [facility], [address] [place] [address], [id number], tel:[phone] OPH CONS[facility]MAN[facility]EL SAGE No Information 4 Stanislav Pacheco. [address] [facility], [address], [place], [place], [id number], [place]. tel:[phone] OFFICE/OUTPA TIENT VISIT, EST [facility], [address] [place] [address], [id number], [place] tel:[phone] OPH CONSULT [facility]MAN[facility] POAG (chief complaint) Primary open-angle glaucoma, bilateral, mild stageAge-rel ated nuclear cataract, bilateralPuc kering of macula, left eye 4 Stanislav Pacheco. [address] [facility], [address], [id number], [place]. tel:[phone] Referring Provider: Robert Sims, [address] [facility], [address] [place] [address], [address]. tel:[phone] OFFICE/OUTPA TIENT VISIT, EST [facility], [address] [place] [address], [id number], tel:[phone] OPH CONS[facility]MANUEL SAGE OAG OU (chief complaint)Cat aract evaluation OU (chief complaint) Primary open-angle glaucoma, bilateral, mild stageAge-rel ated nuclear cataract, bilateralPuc kering of macula, left eye 3 Stanislav Pacheco. [address] [facility] [address], [address] [place] [address], [id number], [place]. tel:[phone] Referring Provider: Robert Sims, [address] [facility], [address] [place] [address], [address]. tel:[phone] OFFICE/OUTPA TIENT VISIT, EST [facility], [address] [place] [address], [id number], [place] tel:[phone] OPH CONSULT ENMANUEL SAGE OAG (chief complaint) Primary open-angle glaucoma, bilateral, mild stageAge-rel ated nuclear cataract, bilateralPuc kering of macula, left eye 2 Stanislav Pacheco. [address] [facility] [address] [facility] [address] , [address], [place], [place], [id number], [place]. tel:[phone] Referring Provider: Robert Sims, [facility] [facility], [address] [facility], [place], [address]. tel:[phone] OFFICE/OUTPA TIENT VISIT, EST [facility], [address] [place] [address], [id number], [place] tel:[phone] OPH CONS[facility] POAG (chief complaint) Primary open-angle glaucoma, bilateral, mild stageAge-rel ated nuclear cataract, bilateralPuc kering of macula, left eye 2 Stanislav Pacheco. [address], [id number], [place]. tel:[phone] Referring Provider: oRbert Sims, [address] [facility], [address], [place], [address]. tel:[phone] OFFICE/OUTPA TIENT VISIT, EST [facility], [address] [place] [address], [id number], tel:[phone] [facility] glaucoma F/U (chief complaint) Primary open-angle glaucoma, bilateral, mild stageAge-rel ated nuclear cataract, bilateralPuc kering of macula, left eye 2 Stanislav Pacheco. [address] [facility] [address], [address], [place], [place], [id number], [place]. tel:[phone] Referring Provider: Junior Colorado MD P, [address] [facility] [address], [place], [place], [id number]. tel:[phone] OFFICE/OUTPA TIENT VISIT, EST [facility], [address] [place] [address], [id number], [place] tel:[phone] OPH CONSULT ENMANUEL SAGE POAG (pseudoexfoli ation OD) (chief complaint) Puckering of macula, left eyeAge-relat ed nuclear cataract, bilateralPri reid open-angle glaucoma, bilateral, mild stage 1 Stanislav Pacheco. [address] [facility] [address], [address], [place], [place], [id number], [place]. tel:[phone] Referring Provider: Robert Sims, [address] [facility], [address], [place], [address]. tel:[phone] [facility], [address] [place] [address], [id number], [place] tel:[phone] OPH CONSULT [facility]MAN[facility]EL SAGE No Information 1 Roshan Rodriguez. [address] [place] [address], [address], [place], [address], [place]. tel:[phone] Referring Provider: Robert Sims, [address] [facility] [address], [address] [facility], [place], [address]. tel:[phone] OFFICE/OUTPA TIENT VISIT, [facility], [address] [place] [address], [id number], [place] tel:[phone] OPH CONSULT ENMANUEL SAGE POAG (chief complaint)Les ions on lids (chief complaint) Allergic conjunctivit is of both eyesDermatoc halasis of left lower eyelidDermat ochalasis of right lower eyelid January- 1 Roshan Rodriguez. [address] [place] [address], [address], [address], [place]. tel:[phone] Referring Provider: Robert Sims, [address] [facility] [address], [address] [place] [address], [address]. tel:[phone] [facility], [address] [place] [address], [id number], [place] tel:[phone] OPH CONSULT ENMANUEL SAGE Post-Op (chief complaint) Puckering of macula, left eye Apr-0 1 Melquiades Lakhani. [address] [place] [address], [address], [place]. tel:[phone] Referring Provider: Robert Sims, [address], [address], [address]. tel:[phone] [facility], [address] [place] [address], [id number], [place] tel:[phone] OPH CONS[facility]MANUEL SAGE Membrane Peel (chief complaint) Puckering of macula, left eye Mar-1 1 Melquiades Lakhani. [address] [place] [address], [address], [address], [place]. tel:[phone] Referring Provider: Robert Sims, [address], [address] [place] [address], [address]. tel:[phone] [facility], [address] [place] [address], [place], [place], [id number], [place] tel:[phone] OPH CONSULT ENMANUEL SAGE 1 day PO Membrane Peel with brilliant blue OS (chief complaint) Puckering of macula, left eye 1 Melquiades Lakhani. [address] [facility], [address], [place], [address], [place]. tel:[phone] Referring Provider: Robert Sims, [address], [address], [place], [address]. tel:[phone] [facility], [address] [place] [address], [id number], [place] tel:[phone] [facility] No Information 1 Melquiades Lakhani. [address] [place] [address], [address] [place] [address], [address], [place]. tel:[phone] Referring Provider: Lesvia Arnett MD, [address] [place] [address] [address], [place], [address]. tel:[phone] OFFICE/OUTPA TIENT VISIT, EST [facility], [address] [place] [address], [id number], [place] tel:[phone] OPH CONSULT [facility] ERM (chief complaint) Puckering of macula, left eyePrimary open-angle glaucoma, left eye, mild stageAge-rel ated nuclear cataract, bilateralCap sular glaucoma with pseudoexfoli ation of lens, right eye, moderate stageVitreou s degeneration , bilateral 1 Melquiades Lakhani. [address] [facility], [address], [place], [address], [place]. tel:[phone] Referring Provider: Robert Sims, [address] [facility] [address], [address], [place], [address]. tel:[phone] OFFICE/OUTPA TIENT VISIT, EST [facility], [address] [place] [address], [id number], [place] tel:[phone] OPH CONSULT ENMANUEL SAGE POAG FU (chief complaint) Age-related nuclear cataract, bilateralPri reid open-angle glaucoma, left eye, mild stagePuckeri ng of macula, left eyeCapsular glaucoma with pseudoexfoli ation of lens, right eye, moderate stage 1 Stanislav Pacheco. [address] [facility] [address], [address], [place], [place], [id number], . tel:[phone] Referring Provider: Robert Sims, [address] [facility] [address], [address] [facility], [place], [address]. tel:[phone] OFFICE/OUTPA TIENT VISIT, EST [facility], [address] [place] [address], [id number], tel:[phone] OPH [facility] SAGE capsular glaucoma F/U (chief complaint) Puckering of macula, left eyeAge-relat ed nuclear cataract, bilateralPri reid open-angle glaucoma, left eye, mild stageCapsula r glaucoma with pseudoexfoli ation of lens, right eye, moderate stage 0 Stanislav Pacheco. [address] [facility] [address], [address], [place], [place], [id number], . tel:[phone] Referring Provider: Robert Sims, [address], [address] [facility], [place], [address]. 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 [address] [facility] [address], [address], [place], [place], [id number], . tel:[phone] Referring Provider: Junior Iraheta, [address], [place], [place], [id number]. tel:[phone] OFFICE/OUTPA TIENT VISIT, EST [facility], [address] [place] [address], [id number], tel:[phone] [facility] PXF glaucoma (chief complaint)dry eyes (chief complaint) Age-related nuclear cataract, bilateralCap sular glaucoma of right eye with pseudoexfoli ation (PXF) of lens, mild stagePuckeri ng of macula, left eyeVitreous degeneration , bilateral Apr- 9 Stanislav Pacheco. [address], [address], [place], [place], [id number], [place]. tel:[phone] Referring Provider: Junior Iraheta, [address], [place], [place], [id number]. tel:[phone] OFFICE/OUTPA TIENT VISIT, EST [facility], [address] [place] [address], [id number], [place] tel:[phone] [facility]PH [facility] Pseudoexfolia tive glaucoma (chief complaint)dry ness (chief complaint) Pseudoexfoli ative glaucoma, right eye, moderate stageAge-rel ated nuclear cataract, bilateral Oct-1 8 Stanislav Pacheco. [address], [address], [place], [place], [id number], [place]. tel:[phone] Referring Provider: Junior Iraheta, [address], [place], [place], [id number]. tel:[phone] OFFICE/OUTPA TIENT VISIT, EST [facility], [address] [place] [address], [id number], [place] tel:[phone] OPH CONSULT ENMANUEL SAGE Physician directed glaucoma exam (chief complaint)Dry Eyes (chief complaint) Pseudoexfoli ative glaucoma, right eye, moderate stageAge-rel ated nuclear cataract, bilateralPuc kering of macula, left eye May-0 2-201 8 Stanislav Pacheco. [address], [address], [id number], . tel:[phone] Referring Provider: Junior Iraheta, [address], [place], [place], [id number]. tel:[phone] OFFICE/OUTPA TIENT VISIT, EST [facility], [address] [place] [address], [id number], tel:[phone] OPH [facility]SULT ENMANUEL SAGE glaucoma (chief complaint)dry eyes (chief complaint) Pseudoexfoli ative glaucoma, right eye, moderate stageAge-rel ated nuclear cataract, bilateralBil ateral keratoconjun ctivitis sicca, not specified as Sjogren's 7 Stanislav Pacheco. [address], [address], [id number], [place]. tel:[phone] Referring Provider: Junior Iraheta, [address], [place], [id number]. tel:[phone] [facility], [address] [place] [address], [id number], tel:[phone] [facility]PH [facility]MANUEL SAGE blurry vision (chief complaint)dry eyes (chief complaint)gla ucoma suspect (chief complaint) Bilateral keratoconjun ctivitis sicca, not specified as Sjogren'sPse udoexfoliati ve glaucoma, right eye, moderate stageAge-rel ated nuclear cataract, bilateralVit reous degeneration , bilateral 7 Stanislav Pacheco. [address], [address], [id number], [place]. tel:[phone] Referring Provider: Junior Iraheta, [address], [place], [place], [id number]. tel:[phone] Family History Family Member Type Diagnosis Age At Onset Problem No family history of Macular degeneration Problem No family history of Hyperte nsion Problem No family history of Diabete s mellitus Problem No family history of Glaucom a Payers Payer name Insurance type Covered democrat ID Judy sweeney(s) MEDIC[place] OF [place] MB [id number] Cigna Medicare Supp Skilled Nursing CI [id number] Social History Type Description Quantity Date Captured Comments Sex Male Smoking Status No Information Chief Complaint And Reason For Visit No Information Plan Of Treatment Date Type Action Status Appointment Roshan Adamson BOOKED History Of Present Illness Encounter Date Complaint History Of Prese nt Illness POAG The 84 year old male presents for evaluation of POAG in the right eye and left eye. It started about 7 month(s) ago. A nerve OCT was ordered today. gtts: Lumigan qhs OU cataract The patient is p resent for evaluation of cataract in the right eye and left eye. It started about 7 month(s) ago. Pt feels his near vision has decreased since he was last seen. Pt presents for a cataract evaluation. A mac OCT was ordered today. gtts: ATs prn gel qhs OU POAG The 83 year old male presents for f/u of POAG OU. Continues to use Lumigan QHS OU. H/O macular pucker OS S/P 25g PPV/MP (w/ BB)/AFX. since last visit Pt reports vision has been stable, maybe a little worse OS. Denies issues with pain/discomfort today, dry often so uses a gel/steph QHS OU.HVF today OAG OU The 82 year old male presents for evaluation of OAG OU, mild stage, PT reports that his VA OU has remained stable for both distance and near, he noticed for the past 2 weeks there is slight pain OU, OD towards upper nasal side and OS upper mid occurs especially late in the after noon intermittently.Continues to use Lumigan qhs OUON OCT ordered today. Cataract evaluation OU The patie nt is present for evaluation of Cataract evaluation OU, PT reports that his VA OU there are no changes to his distance, for reading and near VA he removes his Rx glasses and feels they are better without them. Using Rx progressive glasses. He also has very dry eyes especially in the evening and using genteel OU PRN.Carson and IOL ordered today. OAG The 82 year old male presents for evaluation of OAG, OU. -Fm Hx. He feels his vision has been good and stable. Glasses are working well.He continues Lumigan OU qhs. No refills needed today.HVF today. POAG The 81 year old male presents for evaluation of POAG, OU. Patient hasn't noticed any changes in his vision. He denies any vision loss or spots in his vision. Patient is using Lumigan QHS OU and GenTeal overnight. ON OCT done today glaucoma F/U The 81 year old male presents for evaluation of glaucoma F/U in the right eye and left eye. It started about 6 month(s) ago. It occurs all the time. The condition is stable. Pt states no complaints/changes since last OV. A HVF was ordered today. gtts: Lumigan qhs OU*Pt states he wants to be dilated today and at each OV. POAG (pseudoexfoliation OD) The 80 year old male presents for a 6 month f/up. Patient reports vision OU seems relatively stable since last exam. Patient reports using Lumigan QHS OU - excellent compliance. ON OCT obtained today.*Pt canceled bilat LL bleph/tarsal strip w/ fat prolapse removal in February w/ BAS - was unhappy w/ wait time for the sx. h/o eyelid sx 1992. h/o ERM OS s/p 25g PPV/MP w/ BB/AFX 12/02/20 w/ KV. pt wants dilated each visit. POAG The 80 year old male presents for evaluation of POAG OU. Patient is using Lumigan QHS OU. Patient hasn't had cat surgery or any IOP reducing surgeries OU. Lesions on lids The patient is p resent for evaluation of Lesions on lids, OS>OD, BLL. Patient states that they're like little bumps on the LL margin OU. They itch, and seem to be getting bigger and more numerous over time. Pt isn't using any meds for this or warm compresses. Post-Op Additional infor mation: S/P 25g PPV/MP (w/[place] blue)/AFx OS (12/02/20) OS - Puckering of macula, left eyePt reports having floaters, multiple and large in size. Pt reports no pain. Still using Moxifloxacin QID. Pt also uses Lumigan QHS OU. Pt ref by Dr Colorado. Membrane Peel The 80 year old male presents for evaluation of 1 week PO Membrane Peel with brilliant blue OS. Pt reports he's been noticing a lot of floaters big and small. Pt states the black he was seeing at he bottom of his vision went away last night.DIL OSOCT OS 1 day PO Membrane Pe el with brilliant blue OS The 80 year old male presents for evaluation of 1 day PO Membrane Peel with brilliant blue OS in the left eye. It affects OS. The symptom is constant. The condition is unstable. 1 day PO Membrane peel with brilliant blue OS. He states his VA is blurry he can see something black at the bottom of his VA. Eye is comfortable. ERM The 80 year old male presents for evaluation of ERM in the left eye. It started about 3 weeks ago. Referred by MPD for further evaluation. Pt denies distortion and states he did not notice vision worsening OS until last visit. POAG FU The 80 year old male presents for evaluation of POAG FU in the both eyes. It started about 6 month(s) ago. It affects Unsure. The symptom is constant. The condition is unstable. Patient states his vision seems okay. He has tired red eyes and feels a lot of pressure in his eyes. He wants a prescription for Pataday the bigger bottle. He also needs a refill onLumigan, as he takes that QHS OU. Patient has a request to be dilatated at every visit. capsular glaucoma F/U The 79 yea r old male presents for evaluation of capsular glaucoma F/U in the right eye. It started about 9 month(s) ago. It occurs all the time. The condition is mild. Pt states he does not know how his eyes are doing. A nerve OCT was ordered today. gtts: Lumigan qhs OU, genteal prn OU capsular glaucoma The 79 year ol d male presents for evaluation of capsular glaucoma, OD. Patient reports no changes in vision or comfort ou since his last visit. Patient is using Lumigan QHS OU, last plan indicates that it should be OD only. PT scheduled for VF testing today. Patient was Dx'd a couple years ago. dry eyes The patient is p resent for evaluation of dry eyes in the right eye and left eye. It started about 6 month(s) ago. The symptom is frequent. The condition is significant. Pt C/O dry eyes are very bothersome to him and has been using Lumify BID OU, Systane gel QHS and occasionally Genteal steph QHS OU. He reports the gtts improve the symptoms OU. PXF glaucoma The 78 year old male presents for evaluation of PXF glaucoma in the right eye. Last exam was about 6 month(s) ago. The condition is constant. The condition is stable. Pt si currently taking Lumigan QHS OU (plan states OD only, but pt states it was making his lashes long on OD so uses it OU to have the same effect). 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 Last OV was about 5 month(s) ago. The symptom is constant. The condition is significant. The pt states his OD is growing and larger than the OS. The OD also has a FBS to it, and is red. Lumigan OD QHS only. VF was ordered today. dryness The patient is p resent for evaluation of dryness in the right eye and left eye. It started about 1 year(s) ago. The symptom is constant. The condition is significant. Pt staets he has been using nighttime Genteal and Genteal gtts/ gel OU QID. Physician directed glaucoma exam The 77 year old male presents for evaluation of Physician directed glaucoma exam in the right eye. Pt was last seen about 6 month(s) ago. The symptom is constant. The condition is unstable. Pt is being treated for Pseudoexfoliative glaucoma OD with Lumigan QHS OD only. Dry Eyes The patient is p resent for evaluation of Dry Eyes in the right eye and left eye. It started about 1 year(s) ago. The symptom is constant. The condition is unstable. Pt complains of dryness OU. Using Genteal gel QHS OU. D/C Xiidra after 1 wk due to burning. States that on bright days he occasionally notices a White, alejandra, distinct line in vision OS. glaucoma The 76 year old male presents for 1 month Physician directed F/U evaluation of (pseudoexfoliation) glaucoma in the right eye. Patient started Lumigan OD only QHS after last OV. Patient reports good compliance with drops. VF ordered today. dry eyes The patient is p resent for evaluation of dry eyes in the right eye and left eye. Patient d/c using Restasis (d/t burning) and started Xiidra BID OU as directed. Patient reports no burning with Xiidra, but blurs vision x 40 minutes. Tear lab ordered 305/309 blurry vision The 76 year old male presents for evaluation of blurry vision in the right eye and left eye. It affects OU. The symptom is constant. The condition is significant. Pt states VA seems stable. Pt states he is switching drs and wants a routine exam. dry eyes The patient is p resent for evaluation of dry eyes in the right eye and left eye. It affects OU. The symptom is constant. The condition is significant. Pt currently uses Restasis in morning and GenTeal QHS. Pt states gtts aren't always effective. LD around 7:30 this am. Pt states Restasis will sometimes burn for hours. TearLab ordered (298/Above Range) Pt wanting refil on Restasis. glaucoma suspect The patient is present for evaluation of glaucoma suspect in the right eye and left eye. It affects OU. The symptom is constant. The condition is significant. Pt states he sees flashes/floaters rarely. Pt denies in problems with VA. ON OCT ordered. 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, left eye Impression/Plan Related to 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, bilateral Impression/Plan 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, bilateral, mild stage Impression/Plan 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, bilateral, mild stage Impression/Plan Related to 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, bilateral Impression/Plan 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, left eye Impression/Plan 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, bilateral, mild stage Impression/Plan Related to 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, bilateral Impression/Plan 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, left eye Impression/Plan 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, bilateral, mild stage Impression/Plan Related to 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, bilateral Impression/Plan 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, left eye Impression/Plan 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, bilateral, mild stage Impression/Plan Related to 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, bilateral Impression/Plan 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, left eye Impression/Plan Related to [place] tochalasis of right lower eyelid Impression/Plan Related to [place] tochalasis of left lower eyelid Impression/Plan Related to Aller gic conjunctivitis of both eyes Impression/Plan 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, left eye Impression/Plan 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, left eye Impression/Plan 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, left eye Impression/Plan 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, left eye Impression/Plan 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, left eye, mild stage Impression/Plan Related to 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, bilateral Impression/Plan 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, right eye, moderate stage Impression/Plan Related to Vitre ous degeneration, bilateral Impression/Plan Related to 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, bilateral Impression/Plan 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, left eye, mild stage Impression/Plan 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, left eye Impression/Plan 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, right eye, moderate stage Impression/Plan Related to 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, bilateral Impression/Plan 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, left eye Impression/Plan 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, right eye, moderate stage Impression/Plan 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, left eye, mild stage Impression/Plan 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, mild stage Impression/Plan Related to 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, bilateral Impression/Plan 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, left eye Impression/Plan Related to Vitre ous degeneration, bilateral Impression/Plan Related to Vitre ous degeneration, bilateral Impression/Plan 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, left eye Impression/Plan Related to 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, bilateral Impression/Plan 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 The patient will monitor vision changes and contact us with any decrease in vision. Stable will continue to observe. Related to Age-related nuclear cataract, bilateral Impression/Plan - Co ntinue Xiidra i gtt BID OU and ATs prn. 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 All signs and risks of retinal detachment and tears were discussed in detail. Patient instructed to call the office immediately if any symptoms noted. Related to Vitreous degeneration, bilateral Impression/Plan - Dr nice eyes account for the patient's complaints. Will start Xiidra BID OU d/t discomfort from Restasis. Coupon for 30 day supply given to pt and Rx faxed to [facility]. There is no evidence of permanent changes to the cornea. Explained condition does not have a cure and will need to continue use of OTC artificial tears for maintenance in addition to Xiidra. 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 Discussed treatment options with patient. Medication instillation reviewed and understood. Take medication(s) as written. 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 The patient will monitor vision changes and contact us with any decrease in vision. Related to Age-related nuclear cataract, bilateral Assessments Type Assessment Date No Information
--- OUTSIDE RECORDS SUMMARY | 2024-11-13 09:49 | XMS_ITS ---
Author Organization [facility] shahnaz Address [address] [place] [address] Care Team Providers Care Assistant Professor Sculpture Name Role Phone Robert Capellan Primary Care Provider [phone] Robert Capellan MD Unavailable Unavailable zzzzMigration, zzzzProvider Unavailable Unav ailable REASON FOR VISIT EMR-Colin Encounters Encounter Location Date Provider Diagnosis [facility] [address] [address] [place] [address] 07/15/2023 zzzzProvider zzzzMigration Plan Of Treatment Medication Medication Name Sig Start Date Stop Date Notes Potassium Chloride ER 20 MEQ take 1 tablet (20 meq) by oral route once daily with food for 90 days Oral 1 for 01/21/2021 07/20/2021 Clopidogrel Bisulfate 75 MG TAKE 1 TABLET BY MOUTH ONCE DAILY for 90 days Oral for 90 01/21/2021 07/20/2021 Cyclobenzaprine HCl 5 MG take 1 tablet ( 5 mg) by oral route 3 times per day for 30 days Oral 3 for 30 07/09/2015 08/08/2015 Donepezil HCl 5 MG take 1 tablet by oral route 2 times a day for 90 days Oral 2 for 07/22/2020 07/17/2021 Atorvastatin Calcium 40 MG Oral Tab TAKE 1 TABLET BY MOUTH ONCE DAILY AT BEDTIME for 10/26/2020 01/24/2021 *Reorder from [facility] for eRx and Interaction Alerts* Pravastatin Sodium 10 MG take 1 tablet ( 10 mg) by oral route once daily for 90 days Oral 1 for 90 05/17/2018 Atorvastatin Calcium 20 MG take 1 tablet (20 mg) by oral route once daily for 90 days Oral 1 for 04/14/2017 07/13/2017 Potassium Chloride ER 20 MEQ Oral T Take 1 tablet by mouth once daily with food for 10/26/2020 01/24/2021 *Reorder from [facility] for eRx and Interaction Alerts* Rosuvastatin Calcium 20 MG take 1 tablet (20 mg) by oral route once daily at bedtime for 90 days Oral 1 for 90 11/23/2017 Phentermine HCl 37.5 MG take 1 tablet (37.5 mg) by oral route once daily before breakfast for 20 days Oral 1 for 20 01/09/2020 05/08/2020 Azithromycin 500 MG take 1 tablet (500 mg) by oral route once daily for 3 days Oral 1 for 3 09/20/2018 amLODIPine Besylate 5 MG TAKE 1 TABLET B Y MOUTH ONCE DAILY FOR 90 DAYS for 90 days Oral for 01/21/2021 07/20/2021 Amoxicillin 500 MG take 1 capsule (500 mg) by oral route 3 times per day for 21 days Oral 3 for 21 07/17/2019 08/07/2019 Atorvastatin Calcium 40 MG TAKE 1 TABLET BY MOUTH ONCE DAILY AT BEDTIME for 90 days Oral for 01/21/2021 07/20/2021 Progress Notes * Roshan ADAMSON GDOB:1940 (84 yo M)Acc No.[id number]:07/15/2023 Patient: Roshan HERNANDEZ :1940 A ge:83 Y S ex:Male Address:[address] [place] [address] * Refills Stop amLODIPine Besylate Tablet, 5 MG, Oral, 90, take 1 tablet (5 mg) by oral route once daily for 90 days, , 90 Stop Clopidogrel Bisulfate Tablet, 75 MG, Oral, 90, TAKE 1 TABLET BY MOUTH ONCE DAILY Stop Potassium Chloride ER 20 MEQ Oral T, 90, Take 1 tablet by mouth once daily with food, 90 Stop amLODIPine Besylate Tablet, 5 MG, Oral, 90, take 1 tablet (5 mg) by oral route once daily for 90 days Stop amLODIPine Besylate Tablet, 5 MG, Oral, 90, TAKE ONE TABLET BY MOUTH ONCE DAILY for 90 days, 90 Stop amLODIPine Besylate Tablet, 5 MG, Oral, 90, TAKE 1 TABLET BY MOUTH ONCE DAILY FOR 90 DAYS for 90 days, 90 Stop Atorvastatin Calcium Tablet, 20 MG, Oral, 90, take 1 tablet (20 mg) by oral route once daily for 90 days, , 90 Stop Cyclobenzaprine HCl Tablet, 5 MG, Oral, 90, take 1 tablet (5 mg) by oral route 3 times per day for 30 days, 3, 30 Stop Phentermine HCl Tablet, 37.5 MG, Oral, 30, take 1 tablet (37.5 mg) by oral route once daily before breakfast for 30 days, 1, 30 Stop Amoxicillin Capsule, 500 MG, Oral, 63, take 1 capsule (500 mg) by oral route 3 times per day for 21 days, 3, 21 Stop amLODIPine Besylate Tablet, 5 MG, Oral, 90, take 1 tablet (5 mg) by oral route once daily for 90 days, , Stop amLODIPine Besylate Tablet, 5 MG, Oral, 90, take 1 tablet (5 mg) by oral route once daily for 90 days, , Stop Donepezil HCl Tablet, 5 MG, Oral, 180, take 1 tablet by oral route 2 times a day for 90 days, 2, 90 Stop Phentermine HCl Tablet, 37.5 MG, Oral, 20, take 1 tablet (37.5 mg) by oral route once daily before breakfast for 20 days, 1, 20 Stop Rosuvastatin Calcium Tablet, 20 MG, Oral, 90, take 1 tablet (20 mg) by oral route once daily at bedtime for 90 days, Stop amLODIPine Besylate Tablet, 5 MG, Oral, 90, TAKE ONE TABLET BY MOUTH ONCE DAILY Stop amLODIPine Besylate Tablet, 5 MG, Oral, 60, TAKE 1 TABLET BY MOUTH ONCE DAILY FOR 90 DAYS for 90 days, 90 Stop Azithromycin Tablet, 500 MG, Oral, 3, take 1 tablet (500 mg) by oral route once daily for 3 days, 1, 3 Stop Phentermine HCl Tablet, 37.5 MG, Oral, 30, take 1 tablet (37.5 mg) by oral route once daily before breakfast for 30 days, 1, 30 Stop Atorvastatin Calcium Tablet, 20 MG, Oral, 0, take 1 tablet (20 mg) by oral route once daily, 1 Stop Atorvastatin Calcium Tablet, 40 MG, Oral, 90, TAKE 1 TABLET BY MOUTH ONCE DAILY AT BEDTIME Stop Phentermine HCl Tablet, 37.5 MG, Oral, 30, take 1 tablet (37.5 mg) by oral route once daily before breakfast for 30 days, , 30 Stop Potassium Chloride ER Tablet Extended Release, 20 MEQ, Oral, 90, take 1 tablet (20 meq) by oral route once daily with food for 90 days, Stop Potassium Chloride ER Tablet Extended Release, 20 MEQ, Oral, 90, take 1 tablet (20 meq) by oral route once daily with food for 90 days, Stop Clopidogrel Bisulfate Tablet, 75 MG, Oral, 60, TAKE 1 TABLET BY MOUTH ONCE DAILY for 90 days, 90 Stop Donepezil HCl Tablet, 5 MG, Oral, 180, take 1 tablet by oral route 2 times a day for 90 days, 2, 90 Stop Atorvastatin Calcium Tablet, 40 MG, Oral, 90, take 1 tablet (40 mg) by oral route once daily for 90 days, Stop Atorvastatin Calcium Tablet, 40 MG, Oral, 60, TAKE 1 TABLET BY MOUTH ONCE DAILY AT BEDTIME for 90 days, 90 Stop Clopidogrel Bisulfate Tablet, 75 MG, Oral, 90, TAKE 1 TABLET BY MOUTH ONCE DAILY Stop amLODIPine Besylate Tablet, 5 MG, Oral, 0, take 1 tablet (5 mg) by oral route once daily, 1 Stop Clopidogrel Bisulfate Tablet, 75 MG, Oral, 0, take 1 tablet (75 mg) by oral route once daily, 1 Stop amLODIPine Besylate Tablet, 5 MG, Oral, 90, TAKE 1 TABLET BY MOUTH ONCE DAILY FOR 90 DAYS Stop Clopidogrel Bisulfate Tablet, 75 MG, Oral, 90, TAKE 1 TABLET BY MOUTH ONCE DAILY Stop Atorvastatin Calcium Tablet, 40 MG, Oral, 90, take 1 tablet (40 mg) by oral route once daily at bedtime for 90 days, Stop Clopidogrel Bisulfate Tablet, 75 MG, Oral, 90, take 1 tablet (75 mg) by oral route once daily for 90 days, Stop Clopidogrel Bisulfate Tablet, 75 MG, Oral, 90, TAKE 1 TABLET BY MOUTH ONCE DAILY Stop Clopidogrel Bisulfate Tablet, 75 MG, Oral, 90, TAKE 1 TABLET BY MOUTH ONCE DAILY for 90 days, 90 Stop Donepezil HCl Tablet, 5 MG, Oral, 30, take 1 tablet (5 mg) by oral route once daily in the evening for 30 days, , 30 Stop amLODIPine Besylate Tablet, 5 MG, Oral, 90, TAKE 1 TABLET BY MOUTH ONCE DAILY FOR 90 DAYS Stop Pravastatin Sodium Tablet, 10 MG, Oral, 90, take 1 tablet (10 mg) by oral route once daily for 90 days, Stop Atorvastatin Calcium 40 MG Oral Tab, 90, TAKE 1 TABLET BY MOUTH ONCE DAILY AT BEDTIME, 90 Subjective: * Chief Complaints: * E MR-Colin * Medical History: * Surgical History: * Hospitalization/Major Diagno stic Procedure: * Medications: Objective: * Vitals: * Physical Examination: Assessment: Plan: * Treatment: * Procedure Codes: * * Date:
--- OUTSIDE RECORDS SUMMARY | 2024-11-13 09:49 | XMS_ITS ---
Author Organization [facility] shahnaz Address [address] [facility] [address] [place] [address] Care Team Providers Care Outsole Splicer Name Role Phone Robert Capellan Primary Care Provider [phone] Robert Cpaellan MD Unavailable Unavailable zzzzMigration, zzzzProvider Unavailable Unav ailable Allergies No Known Allergies REASON FOR VISIT [facility] [place] Medications Medication SIG (Take, Route, Frequency, Duration) Notes Start Date End Date Status Aspirin Adult Low Dose 81 MG take 1 tablet (81 mg) by oral route once daily Oral 1 Active NexIUM 40 MG take 1 capsule (40 m g) by oral route once daily Oral 1 Active Zetia 10 MG take 1 tablet (10 mg ) by oral route once daily Oral 1 Active Encounters Encounter Location Date Provider Diagnosis [facility] [address] [facility] [address] [address] 07/16/2023 zzzzProvider zzzzMigration Plan Of Treatment No Information Progress Notes * GRACESocrates Roshan GDOB:1940 (84 yo M)Acc No.[id number]:07/16/2023 Patient: Roshan HERNANDEZ :1940 A ge:83 Y S ex:Male Address:[address] [place] [address], [address] Subjective: * Chief Complaints: * E MR-Colin * Medical History: * Surgical History: T onsillectomy and adenoidectomy; [id number] Surgery; [id number] Repair; 2019-07-12 * Hospitalization/Major Diagno stic Procedure: * Family History: F ather: Brain Cancer Notes: . M other: Hypertension Notes: . * Social History: M igrated Social History: M igrated Social History: :: No Children , :: No Pets , :: Primary Language Icelandic , :: Sleep pattern :: note : no changes , Exercise :: Moderate , Exercise :: Walks , Marital Status :: Single , Substance Use :: Alcohol,socially :: Current every day:: Quantity :: 1 glass , Substance Use :: coffee :: Current every day:: Quantity :: 1 daily , Substance Use :: Denies illicit substance abuse :: Never , Substance Use :: Tobacco :: Never , Substance Use :: Wine :: Current every day:: Quantity :: 1 daily. * Medications: T akingAspirin Adult Low Dose 81 MG Tablet Delayed Release take 1 tablet (81 mg) by oral route once daily Oral 1 NexIUM 40 MG Capsule Delayed Release take 1 capsule (40 mg) by oral route once daily Oral 1 Zetia 10 MG Tablet take 1 tablet (10 mg) by oral route once daily Oral 1 Taking Aspirin Adult Low Dose 81 MG Tablet Delayed Release take 1 tablet (81 mg) by oral route once daily Oral 1 Taking NexIUM 40 MG Capsule Delayed Release take 1 capsule (40 mg) by oral route once daily Oral 1 Taking Zetia 10 MG Tablet take 1 tablet (10 mg) by oral route once daily Oral 1 * Allergies: N .K.D.A.no[Allergies Verified] Objective: * Vitals: * Physical Examination: Assessment: Plan: * Treatment: * Procedure Codes: * * Date:
--- OUTSIDE RECORDS SUMMARY | 2024-11-13 09:49 | XMS_ITS | Patient Health Record ---
Author Organization [facility] shahnaz Address [address] [facility] [address] [place] [address] Care Team Providers Care Chemical Engraver Name Role Phone Robert Capellan Primary Care Provider [phone] Robert Capellan MD Unavailable Unavailable Allergies No Known Allergies Reason For Referral No Information Medications Medication SIG (Take, Route, Frequency, Duration) [...] oral route once daily Oral 1 Active Immunizations Vaccine Route Administration Date Status Comme nts Influenza high dose > 65 [facility] IM Intramuscular 07/09/2015 Administered Influenza high dose > 65 [facility] IM Intramuscular 07/04/2017 Administered Influenza high dose > 65 [facility] IM Intramuscular 07/10/2018 Administered Pneumococcal conjugate PCV 13 IM Intramuscular 07/09/2015 Administered Problems Problem Type SNOMED Code ICD Code Onset Dates Problem Status W/U Status Risk Notes Problem Gastro-esophageal reflux disease without esophagitis (204382726) Gastro-esophagea l reflux disease without esophagitis (K21.9) Active confirmed Problem Backache (657663137) Dorsalgia, unspecified (M54.9) Active confirmed Problem Amnesia (45545511) Other amnesia (R41.3) Active confirmed Problem Hyperlipidemia (39763856) Hyperlipidemia, unspecified (E78.5) Active confirmed Problem Essential hypertension (85714105) Essential (primary) hypertension (I10) Active confirmed Plan Of Treatment No Information Insurance Providers Payer Name Payer Address Payer Phone Subscriber Number Group Number Insured Name Patient Relationship to Insured Coverage Start Date Coverage End Date DO NOT USE AR [id number] Roshan Adamson Self - patient is the insured 7 [employer] [facility] [address] [address] [place] [address] [phone] [id number] Roshan Adamson Self - patient is the insured [employer] [place] [address] [place] [address] [phone] [id number] Roshan Adamson Self - patient is the insured 5 [employer] [address] [address] [place] [address] [phone] [id number] Roshan Adamson Self - patient is the insured 5 Medical (General) History Surgical History Surgery Date(Month/Year) Tonsillectomy and adenoidectomy; 2019-06 Oral Surgery; 2019-07-12 Hernia Repair; 2019-07-12
--- NOTE | 2024-11-13 09:55 | ECHO_ITS ---
Patient Info Name: Roshan Adamson Age: 84 years : 1940 Gender: Male Ht: 64 in Wt: 160 lbs BSA: 1.83 m2 HR: 62 bpm BP: 163 / 67 mmHg Technical Quality: Good Exam Date: 11/13/2024 10:04 AM Exam Location: Echo Lab Patient Status: Outpatient Admit Date: 11/13/2024 Staff Ordering Physician: Casey Irwin DO Body Coverer: Alicia Jack RDCS Attending Provider: Casey Irwin DO Referring Physician: Dc RAMÍREZ; Exam Type: CA echo doppler color flow Study Info Indications I35.1 - Nonrheumatic aortic (valve) insufficiency Complete two-dimensional, color flow and Doppler transthoracic echocardiogram is performed. Summary 1. Complete two-dimensional, color flow and Doppler transthoracic echocardiogram is performed. 2. Left ventricular chamber dimension is moderately enlarged. 3. Left ventricular systolic function is normal, estimated at 60-65%. 4. There is moderate concentric increased left ventricular wall thickness. 5. The left ventricular diastolic function is grade I diastolic dysfunction. 6. E/e' 13 is mildly elevated. 7. Left atrial chamber dimension is mildly enlarged. 8. Right atrial chamber dimension is mildly enlarged. 9. There is moderate aortic valve sclerosis. 10. There is moderate aortic valve regurgitation. 11. The mitral valve has moderately calcified annulus. 12. There is mild to moderate mitral valve regurgitation. 13. No pulmonary hypertension, estimated pulmonary arterial systolic pressure is 26 mmHg. Left Ventricle E/e' 13 is mildly elevated. Left ventricular chamber dimension is moderately enlarged. Left ventricular systolic function is normal, estimated at 60-65%. There is moderate concentric increased left ventricular wall thickness. The left ventricular diastolic function is grade I diastolic dysfunction. Right Ventricle Right ventricular systolic function is normal and with normal TAPSE 2.4 cm. Right ventricular chamber dimension is normal. Left Atria Left atrial chamber dimension is mildly enlarged. Right Atria Right atrial chamber dimension is mildly enlarged. Aortic Valve The aortic valve is trileaflet. There is moderate aortic valve sclerosis. There is no aortic valve stenosis. There is moderate aortic valve regurgitation. Pulmonic Valve There is no pulmonic regurgitation. Mitral Valve The mitral valve has moderately calcified annulus. There is no mitral valve stenosis. There is mild to moderate mitral valve regurgitation. Tricuspid Valve There is no tricuspid valve regurgitation. No pulmonary hypertension, estimated pulmonary arterial systolic pressure is 26 mmHg. Pericardium/Pleural There is no pericardial effusion. Inferior Vena Cava Normal inferior vena cava with >50% collapse upon inspiration consistent with normal right atrial pressure, 5 mmHg. Aorta The aortic root size at the sinus of Valsalva is normal. Left Ventricular Outflow Tract Name Value Normal LVOT 2D LVOT Diameter 2.2 cm LVOT Doppler LVOT Peak Velocity 188 cm/s LVOT Peak Gradient 13 mmHg LVOT Mean Gradient 8 mmHg LVOT VTI 44 cm LVOT VTI/AV VTI Ratio 0.7 LVOT Stroke Volume 165 ml LVOT CO 30.1 l/min LVOT CI 16.4 l/min/m2 Pulmonic Valve Name Value Normal RVOT Doppler RVOT Peak Gradient 2 mmHg PV Doppler PV Peak Velocity 70 cm/s PV Peak Gradient 2 mmHg Mitral Valve Name Value Normal MV Doppler MV Peak Gradient 5 mmHg MV Mean Gradient 2 mmHg MV Decel Stone 322 cm/s2 MV PHT 58 ms MV Area (PHT) 3.8 cm2 4.0-5.0 MV Area (Cont Eq VTI) 4.4 cm2 MV Diastolic Function MV E Peak Velocity 64 cm/s MV A Peak Velocity 91 cm/s MV E/A 0.7 MV Decel Time 199 ms MV Annular TDI MV Septal e' Velocity 5.4 cm/s >=8.0 MV E/e' (Septal) 12.0 <=8.0 MV Lateral e' Velocity 4.2 cm/s >=10.0 MV E/e' (Lateral) 15.3 <=8.0 MV e' Average 4.76 MV E/e' (Average) 13.6 Tricuspid Valve Name Value Normal TV Regurgitation Doppler TR Peak Velocity 230 cm/s TR Peak Gradient 21 mmHg Estimated PAP/RSVP RA Pressure 5 mmHg <=5 PA Systolic Pressure 26 mmHg <36 RV Systolic Pressure 26 mmHg <36 TV Annular TDI TV Lateral Ariana s' Velocity 11.9 cm/s 9.5-18.7 Aorta Name Value Normal Ascending Aorta Ao Root Diameter (MM) 4.3 cm Ao Root Diam Index (MM) 2.4 cm/m2 Ao [place] Diameter 2.2 cm 2.6-3.2 Aortic Valve Name Value Normal AV Doppler AV Peak Velocity 246 cm/s AV Peak Gradient 22 mmHg AV Mean Gradient 13 mmHg AV VTI 65 cm AV Area (Cont Eq VTI) 2.5 cm2 >=3.0 AV Area (Cont Eq William) 2.8 cm2 AV V1/V2 Ratio 0.77 AV Regurgitation 2D LVOT Area 3.7 cm2 AV Regurgitation Doppler AR Decel Time 1,084 ms AR Decel Stone 463 cm/s2 AR PHT 314 ms Ventricles Name Value Normal LV Dimensions 2D/MM IVS Diastolic Thickness (2D) 1.8 cm 0.6-1.0 LVID Diastole (2D) 5.0 cm 4.2-5.8 LVIW Diastolic Thickness (2D) 1.7 cm 0.6-1.0 LVID Systole (2D) 3.0 cm 2.5-4.0 LVOT Diameter 2.2 cm LV Mass (2D Cubed) 400.29 g 88.00-224.00 LV Mass Index (2D Cubed) 219 g/m2 49-115 Relative Wall Thickness (2D) 0.67 LV Fractional Shortening/Ejection Fraction 2D/MM LV Fractional Shortening (2D) 39 % 25-43 LV EF (2D Teicholz) 70 % 52-72 LV Diastolic Volume (4C MOD) 196 ml LV EF (4C MOD) 69 % LV Diastolic Volume (2C MOD) 128 ml LV EF (2C MOD) 72 % LV Diastolic Volume (BP MOD) 174 ml 62-150 LV Diastolic Volume Index (BP MOD) 95 ml/m2 34-74 LV Systolic Volume (BP MOD) 53 ml 21-61 LV Systolic Volume Index (BP MOD) 29 ml/m2 11-31 LV EF (BP MOD) 70 % 52-72 LV Diastolic Length (4C) 8.6 cm LV Systolic Length (4C) 6.6 cm LV Stroke Volume (4C MOD) 136 ml Atria Name Value Normal LA Dimensions LA Dimension (MM) 3.9 cm 3.0-4.1 LA Volume (4C A-L) 63 ml LA Volume (BP A-L) 63 ml RA Dimensions RA Area (4C) 19.8 cm2 <=18.0 Report Signatures
== END 2024-11-13 09:44 | disposition home or self-care (01) ==
PROVIDERS: PCP Family Medicine; Visit Provider Internal Medicine Cardiovascular Disease
DX: I35.1 Nonrheumatic aortic (valve) insufficiency (principal); I34.0 Nonrheumatic mitral (valve) insufficiency
CPT/HCPCS: 93306

== ENCOUNTER 2025-07-10 12:30 | Outpatient (CLI) | payer MEDICARE, SELFPAY ==
--- OUTSIDE RECORDS SUMMARY | 2025-02-11 07:15 | XMS_ITS | Continuity of Care Document ---
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 Role Phone Stanislav BRENNER MD, Junior Rosado le Allergies, Adverse Reactions, Alerts Substance Reaction Status [...] Not Available - Active Procedures Procedure Date VISUAL FIELD- EXTENDED OFFICE/OUTPATIENT VISIT, EST Complex e/m visit add on GDX Retina OFFICE/OUTPATIENT VISIT, EST OFFICE/OUTPATIENT VISIT, [...] SPECIAL EYE EXAM, SUBSEQUENT LEFT EYE Ma OFFICE/OUTPATIENT VISIT, EST VISUAL FIELD EXAMINATION(S) MICROFLUID SALIMA TEARS MCR ONLY MICROFLUID SALIMA TEARS MCR ONLY EYE EXAM, NEW PATIENT GDX Optic Nerve MICROFLUID SALIMA TEARS MCR ONLY MICROFLUID SALIMA TEARS MCR ONLY Results Test Name Date and Time Measure Units Reference Range Abnormal Flag Status Commen ts Panel Description: [id number] Final Image Zeiss Result 1 Panel Description: [id number] Final Image Zeiss Result 2 Panel Description: [id number] Final Image Zeiss Result 3 Panel Description: [id number] Final Image Zeiss Result 4 Advance Directives Directive Yes / No Effective Date File Name No Information Encounters Encounter Description Practice Location Reason(s) For Visit Diagnoses Date Provider Providers Copied on Encounter OFFICE/OUTPA TIENT VISIT, EST [facility], [address] [place] [address], [id number], tel:[phone] OPH CONSULT ENMANUEL SAGE Mild POAG (chief complaint) Primary open-angle glaucoma, bilateral, mild stageAge-rel ated nuclear cataract, bilateralPuc kering of macula, left eye 5 Stanislav Pacheco. [address], [address], [place], [place], [id number], [place]. tel:[phone] Referring Provider: Robert Sims, [facility], [address] [facility], [place], [address]. tel:[phone] [facility], [address] [place] [address], [id number], [place] tel:[phone] OPH CONSULT ENMANUEL SAGE No Information 4 Vicenta Hanson. [address] [place] [address], [address] [facility], [place], [place], [address], [place]. tel:[phone] Referring Provider: Robert Sims, [facility], [address] [facility], [place], [address]. tel:[phone] OFFICE/OUTPA TIENT VISIT, EST [facility], [address] [place] [address], [id number], [place] tel:[phone] OPH CONSULT ENMANUEL SAGE POAG (chief complaint)cat aract (chief complaint) Primary open-angle glaucoma, bilateral, mild stageAge-rel ated nuclear cataract, bilateralPuc kering of macula, left eye 4 Stanislav Pacheco. [address], [address], [place], [place], [id number], [place]. tel:[phone] Referring Provider: Robert Sims, [address], [address] [facility], [place], [address]. tel:[phone] OFFICE/OUTPA TIENT VISIT, EST [facility], [address] [place] [address], [id number], tel:[phone] OPH CONSULT ENMANUEL SAGE POAG (chief complaint) Primary open-angle glaucoma, bilateral, mild stageAge-rel ated nuclear cataract, bilateralPuc kering of macula, left eye 4 Stanislav Pacheco. [address], [address], [place], [place], [address], [place]. tel:[phone] Referring Provider: Robert Sims, [address] [facility], [address] [facility], [place], [address]. tel:[phone] OFFICE/OUTPA TIENT VISIT, EST [facility], [address] [place] [address], [id number], [place] tel:[phone] OPH CONSULT ENMANUEL SAGE OAG OU (chief complaint)Cat aract evaluation OU (chief complaint) Primary open-angle glaucoma, bilateral, mild stageAge-rel ated nuclear cataract, bilateralPuc kering of macula, left eye 3 Stanislav Pacheco. [address] [facility], [address], [place], [place], [id number], [place]. tel:[phone] Referring Provider: Robert Sims, [facility], [address] [facility], [place], [address]. tel:[phone] OFFICE/OUTPA TIENT VISIT, EST [facility], [address] [place] [address], [id number], [place] tel:[phone] OPH CONSULT ENMANUEL SAGE OAG (chief complaint) Primary open-angle glaucoma, bilateral, mild stageAge-rel ated nuclear cataract, bilateralPuc kering of macula, left eye 2 Stanislav Pacheco. [address], [place], [place], [id number], [place]. tel:[phone] Referring Provider: Robert Sims, [address], [address], [place], [address]. tel:[phone] OFFICE/OUTPA TIENT VISIT, EST [facility], [address] [place] [address], [id number], tel:[phone] OPH CONSULT ENMANUEL SAGE POAG (chief complaint) Primary open-angle glaucoma, bilateral, mild stageAge-rel ated nuclear cataract, bilateralPuc kering of macula, left eye 2 Stanislav Pacheco. [address], [address], [place], [place], [id number], [place]. tel:[phone] Referring Provider: Robert Sims, [address], [address] [facility], [place], [address]. tel:[phone] OFFICE/OUTPA TIENT VISIT, EST [facility], [address] [place] [address], [id number], [place] tel:[phone] OPH CONSULT ENMANUEL SAGE glaucoma F/U (chief complaint) Primary open-angle glaucoma, bilateral, mild stageAge-rel ated nuclear cataract, bilateralPuc kering of macula, left eye 2 Stanislav Pacheco. [address], [address], [place], [place], [id number], [place]. tel:[phone] Referring Provider: Junior Iraheta, [address], [place], [address]. tel:[phone] OFFICE/OUTPA TIENT VISIT, EST [facility], [address] [place] [address], [id number], [place] tel:[phone] OPH CONSULT ENMANUEL SAGE POAG (pseudoexfoli ation OD) (chief complaint) Puckering of macula, left eyeAge-relat ed nuclear cataract, bilateralPri reid open-angle glaucoma, bilateral, mild stage 1 Stanislav Pacheco. [address], [address], [place], [place], [id number], [place]. tel:[phone] Referring Provider: Robert Sims, [address] [facility] [address] [facility] [address], [address], [place], [address]. tel:[phone] [facility], [address] [place] [address], [id number], [place] tel:[phone] OPH CONSULT ENMANUEL SAGE No Information 1 Roshan Rodriguez. [id number] [place] [address], Suite [facility], [place], [address], [place]. tel:[phone] Referring Provider: Robert Sims, [address] [facility], [address] [facility], [place], [address]. tel:[phone] OFFICE/OUTPA TIENT VISIT, [facility], [address] [place] [address], [place], [place], [id number], [place] tel:[phone] OPH CONSULT ENMANUEL SAGE POAG (chief complaint)Les ions on lids (chief complaint) Allergic conjunctivit is of both eyesDermatoc halasis of left lower eyelidDermat ochalasis of right lower eyelid 1 Roshan Michael. [address] [place] [address], [address], [place], [address], [place]. tel:[phone] Referring Provider: Robert Sims, [address] [facility] [address], [address], [place], [address]. tel:[phone] [facility], [address] [place] [address], [place], [place], [id number], [place] tel:[phone] OPH CONSULT ENMANUEL SAGE Post-Op (chief complaint) Puckering of macula, left eye Apr-0 1 Melquiades Lakhani. [address] [place] [address], [address] [facility], [place], [place], [id number], [place]. tel:[phone] Referring Provider: Robert Sims, [address] [facility] [address], [address], [place], [address]. tel:[phone] [facility], [address] [place] [address], [place], [place], [id number], [place] tel:[phone] OPH CONSULT ENMANUEL SAGE Membrane Peel (chief complaint) Puckering of macula, left eye Nov- 1 Melquiades Lakhani. [address] [facility], [address], [place], [place], [address], [place]. tel:[phone] Referring Provider: Robert Sims, [address] [facility] [address], [address], [place], [address]. tel:[phone] [facility], [address] [place] [address], [place], [place], [id number], [place] tel:[phone] OPH CONSULT ENMANUEL SAGE 1 day PO Membrane Peel with brilliant blue OS (chief complaint) Puckering of macula, left eye Nov- 1 Melquiades Lakhani. [address] [facility], [address] [facility], [place], [place], [address], [place]. tel:[phone] Referring Provider: Robert Sims, [address] [facility] [address], [address], [place], [address]. tel:[phone] [facility], [address] [place] [address], [place], [place], [id number], [place] tel:[phone] [facility] No Information 1 Melquiades Lakhani. [address] [facility], [address] [facility], [place], [place], [address], [place]. tel:[phone] Referring Provider: Lesvia Arnett MD, [address] [place] [address] [address], [place], [address]. tel:[phone] OFFICE/OUTPA TIENT VISIT, [facility], [address] [place] [address], [id number], [place] tel:[phone] OPH CONSULT [facility] ERM (chief complaint) Puckering of macula, left eyePrimary open-angle glaucoma, left eye, mild stageAge-rel ated nuclear cataract, bilateralCap sular glaucoma with pseudoexfoli ation of lens, right eye, moderate stageVitreou s degeneration , bilateral Feb- 1 Melquiades Lakhani. [address] [place] [address], [address], [place], [place], [address], . tel:[phone] Referring Provider: Robert Sims, [address] [facility] [address], [address], [place], [address]. tel:[phone] OFFICE/OUTPA TIENT VISIT, EST [facility], [address] [place] [address], [id number], [place] tel:[phone] OPH CONSULT ENMANUEL SAGE POAG FU (chief complaint) Age-related nuclear cataract, bilateralPri reid open-angle glaucoma, left eye, mild stagePuckeri ng of macula, left eyeCapsular glaucoma with pseudoexfoli ation of lens, right eye, moderate stage 1 Stanislav Pacheco. [address], [address], [place], [place], [address], [place]. tel:[phone] Referring Provider: Robert Sims, [address], [address], [place], [address]. tel:[phone] OFFICE/OUTPA TIENT VISIT, EST [facility], [address] [place] [address], [id number], [place] tel:[phone] OPH CONSULT ENMANUEL SAGE capsular glaucoma F/U (chief complaint) Puckering of macula, left eyeAge-relat ed nuclear cataract, bilateralPri reid open-angle glaucoma, left eye, mild stageCapsula r glaucoma with pseudoexfoli ation of lens, right eye, moderate stage 0 Stanislav Pacheco. [address], [address], [place], [place], [address], [place]. tel:[phone] Referring Provider: Robert Sims, [address] [facility], [address], [place], [address]. 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 [address], [address], [place], [place], [address], [place]. tel:[phone] Referring Provider: Junior Iraheta, [address], [place], [address]. tel:[phone] OFFICE/OUTPA TIENT VISIT, EST [facility], [address] [place] [address], [place], [place], [id number], [place] tel:[phone] OPH CONSULT ENMANUEL SAGE PXF glaucoma (chief complaint)dry eyes (chief complaint) Age-related nuclear cataract, bilateralCap sular glaucoma of right eye with pseudoexfoli ation (PXF) of lens, mild stagePuckeri ng of macula, left eyeVitreous degeneration , bilateral Apr-1 9 Stanislav Pacheco. [address], [address], [place], [place], [address], [place]. tel:[phone] Referring Provider: Junior Iraheta, [address], [place], [address]. tel:[phone] OFFICE/OUTPA TIENT VISIT, EST [facility], [address] [place] [address], [id number], [place] tel:[phone] OPH CONSULT ENMANUEL SAGE Pseudoexfolia tive glaucoma (chief complaint)dry ness (chief complaint) Pseudoexfoli ative glaucoma, right eye, moderate stageAge-rel ated nuclear cataract, bilateral Oct-1 8 Stanislav Pacheco. [address], [place], [place], [address], [place]. tel:[phone] Referring Provider: Junior Iraheta, [address], [place], [address]. tel:[phone] OFFICE/OUTPA TIENT VISIT, EST [facility], [address] [place] [address], [id number], [place] tel:[phone] OPH CONSULT ENMANUEL SAGE Physician directed glaucoma exam (chief complaint)Dry Eyes (chief complaint) Pseudoexfoli ative glaucoma, right eye, moderate stageAge-rel ated nuclear cataract, bilateralPuc kering of macula, left eye May- 8 Stanislav Pacheco. [address], [address], [place], [place], [address], [place]. tel:[phone] Referring Provider: Junior Colorado MD P, [address], [place], [address]. tel:[phone] OFFICE/OUTPA TIENT VISIT, EST [facility], [address] [place] [address], [id number], [place] tel:[phone] OPH CONSULT ENMANUEL SAGE glaucoma (chief complaint)dry eyes (chief complaint) Pseudoexfoli ative glaucoma, right eye, moderate stageAge-rel ated nuclear cataract, bilateralBil ateral keratoconjun ctivitis sicca, not specified as Sjogren's Sep-2 7 Stanislav Pacheco. [address], [place], [place], [address], [place]. tel:[phone] Referring Provider: Junior Iraheta, [address], [place], [address]. tel:[phone] [facility], [address] [place] [address], [id number], tel:[phone] OPH CONSULT ENMANUEL SAGE blurry vision (chief complaint)dry eyes (chief complaint)gla ucoma suspect (chief complaint) Bilateral keratoconjun ctivitis sicca, not specified as Sjogren'sPse udoexfoliati ve glaucoma, right eye, moderate stageAge-rel ated nuclear cataract, bilateralVit reous degeneration , bilateral Stanislav Pacheco. [address], [address], [place], [place], [address], . tel:[phone] Referring Provider: Junior Colorado MD P, [address], [place], [address]. tel:[phone] Family History Family Member Type Diagnosis Age At Onset Problem No family history of Macular degeneration Problem No family history of Hyperte nsion Problem No family history of Diabete s mellitus Problem No family history of Glaucom a Payers Payer name Insurance type Covered constitution party ID Authormichael sweeney(s) [place] [id number] Cigna Medicare Supplement CI [id number] Social History Type Description Quantity Date Captured Comments Alcohol Use Details Caffeine Use Details Tobacco Use Status Current non-smoker Smoking Status Never smoker Non-Smoking Tobacco Use Details : No Details Available : No Details Available Sex Male Vital Signs Date / Time: Height Weight BMI Pulse Rate Blood Pressure Temperature Respiratory Rate Body Surface Area Head Circumference Head Circ. Percentile Wt./Isaiah. Percentile BMI percentile Pulse Ox Inhaled Ox 2:08 PM 64.00 in 72.575 kg (160.00 lbs) 27.4 6 kg/m eter (2) Chief Complaint And Reason For Visit From encounter dated '02/11/2025 12:15'. Mild POAG (chief complaint). Description: 84 year old male presents for an evaluation of mild POAG OU. Using Lumigan QHS OU. Patient denies any changes in vision. Denies pain/discomfort. Patient would really like to just get new glasses and is not interested in cataract sx. He believes there will be a great change in his vision once he gets new glasses. HVF 24-2 ordered today. Reason For Referral Reason For Referral No Information Plan Of Treatment Date Type Action Status Appointment Roshan Adamson BOOKED Future Order: Radiology Order Zamarripa ag-Alex Lenstar [id number] ENMANUEL ([id number]), Sent on: Sent Future Order: Radiology Order Ze iss Visual Field Analyzer ENMANUEL ([id number]), Sent on: Sent Future Order: Radiology Order Op tos [place] LMP ([id number]), Sent on: Sent History Of Present Illness Encounter Date Complaint History Of Prese nt Illness Mild POAG 84 year old male presents for an evaluation of mild POAG OU. Using Lumigan QHS OU. Patient denies any changes in vision. Denies pain/discomfort. Patient would really like to just get new glasses and is not interested in cataract sx. He believes there will be a great change in his vision once he gets new glasses. HVF 24-2 ordered today. POAG The 84 year old male presents [...] ERM OS s/p 25g PPV/MP w/ BB/AFX 3/10/21 w/ KV. pt wants dilated each visit. [...] Post-Op Additional infor mation: S/P 25g PPV/MP (w/Canvas blue)/AFx OS (12/02/20) OS - Puckering of [...] started about 3 weeks ago. Referred by LINDSEYD for further evaluation. Pt denies distortion and [...] in problems with VA. ON OCT ordered. 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 Related to Age-related nuclear cataract, bilateral Impression/Plan - No evidence of retinal pathology. All signs and risks of retinal detachment and tears were discussed in detail. Patient instructed to call the office immediately if any symptoms noted. Related to Vitreous degeneration, bilateral Impression/Plan - Dr arlet eyes account for the patient's complaints. Will start Xiidra BID OU d/t discomfort from [facility]. Coupon for 30 day supply given to pt and Rx faxed to [facility]. There is no evidence of permanent changes to the cornea. Explained condition does not have a cure and will need to continue use of OTC artificial tears for maintenance in addition to Xiidra. 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 Bilateral.ON OCT ordered today and shows bilateral NFL thinning assessment Age-related nuclear cataract, bi lateral impression Age-related nuclear cataract, bilateral: H25.13.OS>>OD Optical Biometry ordered today to assist in the exam assessment Puckering of macula, left eye Ma y impression Puckering of macula, left eye H35.372. S/P S/P 25g PPV/MP (w/Canvas blue)/AFx OS (12/02/20) [facility] OCT ordered today and shows stable ERM OS Patient Care Teams Name Effective Dates (start - stop) Status Members No Information
--- OUTSIDE RECORDS SUMMARY | 2025-07-10 14:09 | XMS_ITS | Patient Health Record ---
Author Organization [facility] Address [address] [facility] [address] [place] [address] Care Team Providers Care Licensed Marriage And Family Therapist Name Role Phone Robert Capellan Primary Care Provider [phone] Robert Capellan MD Unavailable Unavailable Allergies [...] Notes Problem Gastro-esophageal reflux disease without esophagitis (534620704) Gastro-esophagea l reflux disease without esophagitis (K21.9) Active confirmed Problem Backache (659463688) Dorsalgia, unspecified (M54.9) Active confirmed Problem Amnesia (00661302) Other amnesia (R41.3) Active confirmed Problem Hyperlipidemia (81652545) Hyperlipidemia, unspecified (E78.5) Active confirmed Problem Essential hypertension (11006420) Essential (primary) hypertension (I10) Active confirmed Plan Of Treatment No Information Insurance Providers Payer Name Payer Address Payer Phone Subscriber Number Group Number Insured Name Patient Relationship to Insured Coverage Start Date Coverage End Date DO NOT USE AR [id number] Roshan Adamson Self - patient is the insured 7 [employer] [facility] [address] [address] [place] [address] [id number] Roshan Adamson Self - patient is the insured [employer] [place] [address] [place] [address] [id number] Roshan Adamson Self - patient is the insured 5 [employer] [address] [address] [place] [address] [id number] Roshan Adamson Self - patient is the insured 5 Medical (General) History Surgical History Surgery Date(Month/Year) Tonsillectomy and adenoidectomy; 2019-06 Oral Surgery; 2019-07-12 Hernia Repair; 2019-07-12
[2025-07-10 14:17] LABS: Toxigenic C. Diff NEGATIVE (NEGATIVE)
== END 2025-07-10 12:31 | disposition home or self-care (01) ==
PROVIDERS: PCP Family Medicine; Visit Provider Internal Medicine Gastroenterology
DX: R19.7 Diarrhea, unspecified (principal)
CPT/HCPCS: 87493